=== PATIENT | female | born 1955 | race Caucasian/White ===

== ENCOUNTER 2019-04-07 23:10 | Inpatient (IN) | payer BC, MEDICAID ==
[2019-04-08 00:08] LABS: ADD MAN DIFF? NO
[2019-04-08 00:30] LABS: INR 0.95; PROTIME 12.8 Sec (11.9-14.9)
[2019-04-08 00:31] LABS: PARTIAL THROMBOPLASTIN TIME 26.3 Sec (23.0-35.0)
[2019-04-08 00:33] LABS: ALANINE AMINOTRANSFERASE 48 IU/L (13-69); ALBUMIN 3.7 g/dl (3.3-4.9); ALKALINE PHOSPHATASE 88 IU/L (42-121); ANION GAP 7 (5-13); ASPARTATE AMINO TRANSFERASE 35 IU/L (15-46); BILIRUBIN,INDIRECT 0.3 mg/dl (0-1.1); BILIRUBIN,TOTAL 0.3 mg/dl (0.2-1.3); BLOOD UREA NITROGEN 14 mg/dl (7-20); CALCIUM 9.4 mg/dl (8.4-10.2); CARBON DIOXIDE 39 mmol/L (21-31); CHLORIDE 95 mmol/L (97-110); CREATININE 0.49 mg/dl (0.44-1.00); Estimated GFR > 60 mL/min (>60); GLUCOSE 134 mg/dl (70-220); POTASSIUM 3.7 mmol/L (3.5-5.1); SODIUM 141 mmol/L (135-144); TOTAL PROTEIN 7.4 g/dl (6.1-8.1)
[2019-04-08 00:37] LABS: AADO2 Arterial 139.4 mmHg (7.0-24.0); Allen Test ACCEPTAB; Arterial Base Excess 11.5 mmol/L (-3.0-3); Arterial Blood Gas Oxygen Sat 95.6 mmHG (95.0-98.0); Arterial COHb 0.3 % (0.0-3.0); Arterial Fraction of Oxyhgb 94.9 % (93.0-99.0); Arterial HCO3 37.4 mmol/L (22.0-26.0); Arterial MetHb 0.4 % (0.0-1.5); MODE VENT - AC; Site Right Radial
[2019-04-08 00:45] LABS: WHITE BLOOD COUNT 13.7 10^3/ul (4.8-10.8)
[2019-04-08 00:45] LABS: BASOPHIL # 0.1 10^3/ul (0.0-0.1); BASOPHILS % 0.7 % (0.0-2.0); EOSINOPHILS # 0.7 10^3/ul (0.0-0.5); EOSINOPHILS % 5.3 % (0.0-7.0); HEMATOCRIT 31.7 % (37.0-47.0); HEMOGLOBIN 9.6 g/dl (12.0-16.0); LYMPHOCYTES # 1.4 10^3/ul (0.8-2.9); LYMPHOCYTES % 9.8 % (15.0-51.0); MEAN CORPUSCULAR HEMOGLOBIN 28.7 pg (29.0-33.0); MEAN CORPUSCULAR HGB CONC 30.3 g/dl (32.0-37.0); MEAN CORPUSCULAR VOLUME 94.9 fl (82.0-101.0); MEAN PLATELET VOLUME 9.5 fl (7.4-10.4); MONOCYTE # 0.8 10^3/ul (0.3-0.9); MONOCYTES % 5.8 % (0.0-11.0); NEUTROPHIL # 10.6 10^3/ul (1.6-7.5); NEUTROPHILS % 77.4 % (39.0-77.0); PLATELET COUNT 481 10^3/UL (140-415); RED BLOOD COUNT 3.34 10^6/ul (4.20-5.40); RED CELL DISTRIBUTION WIDTH 15.1 % (11.5-14.5)
[2019-04-08 00:53] LABS: TROPONIN-I 0.017 ng/ml (0.000-0.120)
[2019-04-08 01:15] LABS: B-TYPE NATRIURETIC PEPTIDE 596 PG/ML (0-125)
[2019-04-08] MEDS: OXYCODONE/ACETAMINOPHEN (5/325) TAB GTB ×2 (09:00→22:38)
[2019-04-08] MEDS ORDERED: FENTAnyl 50 MCG/ML VIAL (15:38)
[2019-04-08] MEDS: FENTAnyl 50 MCG/ML VIAL IV (16:04)
[2019-04-08] MEDS ORDERED: ACETAMINOPHEN 325 MG TAB PO (18:30)
[2019-04-08] MEDS ORDERED: ONDANSETRON 4 MG INJ IV (18:30)
[2019-04-08] MEDS ORDERED: morphine 2 MG INJ IV (19:00)
[2019-04-08] MEDS ORDERED: NACL 0.9% 3 ML SYG IV (19:00)
[2019-04-08] MEDS ORDERED: VANCOMYCIN IV PER PHARMACY XX (19:00)
[2019-04-08] MEDS: PIPER-TAZO 3.375 GM IV (PMX) 100 ML IVPB ×2 (19:31→23:55)
[2019-04-08] MEDS: VANCOMYCIN HCL 1.75 GM in SOD CHLORIDE 0.9% 500 ML IVPB (20:22)
[2019-04-09] MEDS: ZOLPIDEM 5 MG TAB PO (03:10)
[2019-04-09] MEDS: OXYCODONE/ACETAMINOPHEN (5/325) TAB GTB ×4 (04:42→22:35)
[2019-04-09] MEDS: PIPER-TAZO 3.375 GM IV (PMX) 100 ML IVPB ×3 (06:04→18:13)
[2019-04-09 06:11] LABS: ADD MAN DIFF? NO
[2019-04-09 06:16] LABS: WHITE BLOOD COUNT 12.6 10^3/ul (4.8-10.8)
[2019-04-09 06:16] LABS: BASOPHIL # 0.1 10^3/ul (0.0-0.1); BASOPHILS % 0.6 % (0.0-2.0); EOSINOPHILS # 0.8 10^3/ul (0.0-0.5); EOSINOPHILS % 6.4 % (0.0-7.0); HEMATOCRIT 31.2 % (37.0-47.0); HEMOGLOBIN 9.6 g/dl (12.0-16.0); LYMPHOCYTES # 2.3 10^3/ul (0.8-2.9); MEAN CORPUSCULAR HEMOGLOBIN 28.7 pg (29.0-33.0); MEAN CORPUSCULAR HGB CONC 30.8 g/dl (32.0-37.0); MEAN CORPUSCULAR VOLUME 93.1 fl (82.0-101.0); MEAN PLATELET VOLUME 9.2 fl (7.4-10.4); NEUTROPHIL # 8.3 10^3/ul (1.6-7.5); PLATELET COUNT 405 10^3/UL (140-415); RED BLOOD COUNT 3.35 10^6/ul (4.20-5.40); RED CELL DISTRIBUTION WIDTH 14.7 % (11.5-14.5)
[2019-04-09 06:44] LABS: ANION GAP 12 (5-13); BLOOD UREA NITROGEN 14 mg/dl (7-20); CARBON DIOXIDE 35 mmol/L (21-31); CHLORIDE 94 mmol/L (97-110); CREATININE 0.46 mg/dl (0.44-1.00); Estimated GFR > 60 mL/min (>60); GLUCOSE 82 mg/dl (70-220); MAGNESIUM 1.6 mg/dl (1.7-2.5); PHOSPHORUS 4.3 mg/dl (2.5-4.9); POTASSIUM 3.1 mmol/L (3.5-5.1); SODIUM 141 mmol/L (135-144)
[2019-04-09 06:55] LABS: HEMOGLOBIN A1C 5.3 % (0-5.9)
[2019-04-09] MEDS: DILTIAZEM 25 MG INJ IV (08:26)
[2019-04-09] MEDS: DILTIAZEM-D5W 125MG/125ML DRIP 125 ML IV (08:50)
[2019-04-09] MEDS: ENOXAPARIN 40 MG/0.4 ML SYG SC (09:55)
[2019-04-09] MEDS: VANCOMYCIN 1.5 GM/NS 250 ML 250 ML IVPB ×2 (10:23→21:30)
[2019-04-09] MEDS: POTASSIUM CHLORIDE 20 MEQ POWDER FOR ORAL SOLN GTB (10:29)
[2019-04-09] MEDS: MAGNESIUM SULFATE 2 GM/50 ML 50 ML IVPB (12:09)
[2019-04-09] MEDS: ESTRADIOL 0.1 MG/24 HR PATCH TRANSDERM (21:27)
[2019-04-09] MEDS: oxyCODONE (CR) 10 MG TAB [oxyCONTIN] PO (21:29)
[2019-04-09] MEDS: METOPROLOL 25 MG TAB GTB (21:30)
[2019-04-10] MEDS: PIPER-TAZO 3.375 GM IV (PMX) 100 ML IVPB ×4 (00:43→17:58)
[2019-04-10] MEDS: LEVALBUTEROL (HFA) 15 GM INHALER INH ×2 (04:05→21:23)
[2019-04-10] MEDS: ZOLPIDEM 5 MG TAB PO (05:30)
[2019-04-10] MEDS: METOPROLOL 25 MG TAB GTB ×2 (06:25→21:01)
[2019-04-10] MEDS: DILTIAZEM-D5W 125MG/125ML DRIP 125 ML IV (06:26)
[2019-04-10] MEDS ORDERED: METOPROLOL 25 MG TAB GTB (09:00)
[2019-04-10] MEDS: ENOXAPARIN 40 MG/0.4 ML SYG SC (09:12)
[2019-04-10 09:51] LABS: ADD MAN DIFF? NO
[2019-04-10 09:52] LABS: WHITE BLOOD COUNT 14.7 10^3/ul (4.8-10.8)
[2019-04-10 09:52] LABS: BASOPHIL # 0.1 10^3/ul (0.0-0.1); BASOPHILS % 0.6 % (0.0-2.0); EOSINOPHILS # 0.8 10^3/ul (0.0-0.5); EOSINOPHILS % 5.3 % (0.0-7.0); HEMATOCRIT 31.6 % (37.0-47.0); LYMPHOCYTES # 2.8 10^3/ul (0.8-2.9); LYMPHOCYTES % 18.8 % (15.0-51.0); MEAN CORPUSCULAR HEMOGLOBIN 28.8 pg (29.0-33.0); MEAN CORPUSCULAR HGB CONC 31.6 g/dl (32.0-37.0); MEAN CORPUSCULAR VOLUME 91.1 fl (82.0-101.0); MEAN PLATELET VOLUME 9.2 fl (7.4-10.4); MONOCYTES % 7.1 % (0.0-11.0); NEUTROPHIL # 9.9 10^3/ul (1.6-7.5); NEUTROPHILS % 67.5 % (39.0-77.0); PLATELET COUNT 425 10^3/UL (140-415); RED BLOOD COUNT 3.47 10^6/ul (4.20-5.40); RED CELL DISTRIBUTION WIDTH 14.7 % (11.5-14.5)
[2019-04-10 10:12] LABS: BLOOD UREA NITROGEN 12 mg/dl (7-20); CALCIUM 9.2 mg/dl (8.4-10.2); CHLORIDE 93 mmol/L (97-110); CREATININE 0.45 mg/dl (0.44-1.00); Estimated GFR > 60 mL/min (>60); GLUCOSE 133 mg/dl (70-220); MAGNESIUM 1.9 mg/dl (1.7-2.5); POTASSIUM 3.5 mmol/L (3.5-5.1); SODIUM 138 mmol/L (135-144)
[2019-04-10 10:19] LABS: ANION GAP 7 (5-13)
[2019-04-10 10:23] LABS: CARBON DIOXIDE 38 mmol/L (21-31)
[2019-04-10] MEDS: OXYCODONE/ACETAMINOPHEN (5/325) TAB GTB ×2 (10:34→18:53)
[2019-04-10] MEDS: oxyCODONE 5 MG TAB GTB ×3 (12:53→20:58)
[2019-04-10] MEDS ORDERED: oxyCODONE (CR) 10 MG TAB [oxyCONTIN] PO (13:00)
[2019-04-10] MEDS: VANCOMYCIN 1 GM 250 ML IVPB (15:53)
[2019-04-10] MEDS: PANTOPRAZOLE 40 MG INJ IV (15:54)
[2019-04-10] MEDS: LORAZEPAM 2 MG INJ IV (15:57)
[2019-04-10] MEDS ORDERED: FAMOTIDINE 20 MG INJ IV (21:00)
[2019-04-10] MEDS: IPRATROPIUM (HFA) 12.9 GM INHALER INH (21:22)
[2019-04-11] MEDS: PIPER-TAZO 3.375 GM IV (PMX) 100 ML IVPB ×4 (00:38→18:07)
[2019-04-11] MEDS: ZOLPIDEM 5 MG TAB PO ×2 (00:42→21:20)
[2019-04-11] MEDS: VANCOMYCIN 1 GM 250 ML IVPB ×2 (03:25→16:19)
[2019-04-11] MEDS: DILTIAZEM-D5W 125MG/125ML DRIP 125 ML IV (05:40)
[2019-04-11] MEDS: PANTOPRAZOLE 40 MG INJ IV (05:40)
[2019-04-11] MEDS: LORAZEPAM 2 MG INJ IV (06:23)
[2019-04-11] MEDS: IPRATROPIUM (HFA) 12.9 GM INHALER INH (07:59)
[2019-04-11] MEDS: LEVALBUTEROL (HFA) 15 GM INHALER INH (07:59)
[2019-04-11 08:58] LABS: ADD MAN DIFF? NO
[2019-04-11 09:02] LABS: BASOPHIL # 0.1 10^3/ul (0.0-0.1); BASOPHILS % 0.5 % (0.0-2.0); EOSINOPHILS # 0.8 10^3/ul (0.0-0.5); EOSINOPHILS % 5.1 % (0.0-7.0); HEMATOCRIT 31.2 % (37.0-47.0); HEMOGLOBIN 9.7 g/dl (12.0-16.0); LYMPHOCYTES # 2.6 10^3/ul (0.8-2.9); LYMPHOCYTES % 17.8 % (15.0-51.0); MEAN CORPUSCULAR HEMOGLOBIN 28.4 pg (29.0-33.0); MEAN CORPUSCULAR HGB CONC 31.1 g/dl (32.0-37.0); MEAN CORPUSCULAR VOLUME 91.2 fl (82.0-101.0); MONOCYTES % 6.7 % (0.0-11.0); NEUTROPHIL # 10.2 10^3/ul (1.6-7.5); NEUTROPHILS % 69.3 % (39.0-77.0); PLATELET COUNT 350 10^3/UL (140-415); RED BLOOD COUNT 3.42 10^6/ul (4.20-5.40); RED CELL DISTRIBUTION WIDTH 14.6 % (11.5-14.5)
[2019-04-11 09:02] LABS: WHITE BLOOD COUNT 14.7 10^3/ul (4.8-10.8)
[2019-04-11] MEDS: METOPROLOL 25 MG TAB GTB ×2 (09:09→20:05)
[2019-04-11] MEDS: oxyCODONE 5 MG TAB GTB ×4 (09:09→20:05)
[2019-04-11 09:19] LABS: ANION GAP 6 (5-13); BLOOD UREA NITROGEN 14 mg/dl (7-20); CALCIUM 9.1 mg/dl (8.4-10.2); CARBON DIOXIDE 36 mmol/L (21-31); CHLORIDE 96 mmol/L (97-110); CREATININE 0.44 mg/dl (0.44-1.00); Estimated GFR > 60 mL/min (>60); GLUCOSE 125 mg/dl (70-220); POTASSIUM 3.2 mmol/L (3.5-5.1); SODIUM 138 mmol/L (135-144)
[2019-04-11] MEDS: ENOXAPARIN 40 MG/0.4 ML SYG SC (09:53)
[2019-04-11 10:24] LABS: PROCALCITONIN 0.17 ng/mL (0.00-0.10)
[2019-04-11] MEDS: OXYCODONE/ACETAMINOPHEN (5/325) TAB GTB (12:11)
[2019-04-11] MEDS: POTASSIUM CHLORIDE 20 MEQ POWDER FOR ORAL SOLN GTB (20:26)
[2019-04-11] MEDS: ONDANSETRON 4 MG INJ IV (20:27)
[2019-04-12] MEDS: PIPER-TAZO 3.375 GM IV (PMX) 100 ML IVPB ×5 (00:16→22:58)
[2019-04-12] MEDS: VANCOMYCIN 1 GM 250 ML IVPB (04:22)
[2019-04-12] MEDS: DILTIAZEM-D5W 125MG/125ML DRIP 125 ML IV (04:35)
[2019-04-12 05:53] LABS: ADD MAN DIFF? NO
[2019-04-12] MEDS: OXYCODONE/ACETAMINOPHEN (5/325) TAB GTB ×3 (05:53→17:02)
[2019-04-12] MEDS: PANTOPRAZOLE 40 MG INJ IV (05:53)
[2019-04-12 06:02] LABS: ANION GAP 4 (5-13); BLOOD UREA NITROGEN 17 mg/dl (7-20); CARBON DIOXIDE 37 mmol/L (21-31); CHLORIDE 96 mmol/L (97-110); CREATININE 0.44 mg/dl (0.44-1.00); Estimated GFR > 60 mL/min (>60); GLUCOSE 146 mg/dl (70-220); POTASSIUM 3.7 mmol/L (3.5-5.1); SODIUM 137 mmol/L (135-144)
[2019-04-12 06:22] LABS: BASOPHIL # 0.1 10^3/ul (0.0-0.1); BASOPHILS % 0.6 % (0.0-2.0); EOSINOPHILS % 7.5 % (0.0-7.0); HEMATOCRIT 30.5 % (37.0-47.0); HEMOGLOBIN 9.2 g/dl (12.0-16.0); LYMPHOCYTES # 2.8 10^3/ul (0.8-2.9); LYMPHOCYTES % 22.3 % (15.0-51.0); MEAN CORPUSCULAR HEMOGLOBIN 28.3 pg (29.0-33.0); MEAN CORPUSCULAR HGB CONC 30.2 g/dl (32.0-37.0); MEAN CORPUSCULAR VOLUME 93.8 fl (82.0-101.0); MEAN PLATELET VOLUME 10.3 fl (7.4-10.4); MONOCYTE # 1.1 10^3/ul (0.3-0.9); MONOCYTES % 8.3 % (0.0-11.0); NEUTROPHIL # 7.7 10^3/ul (1.6-7.5); NEUTROPHILS % 60.8 % (39.0-77.0); PLATELET COUNT 340 10^3/UL (140-415); RED BLOOD COUNT 3.25 10^6/ul (4.20-5.40); RED CELL DISTRIBUTION WIDTH 14.9 % (11.5-14.5)
[2019-04-12 06:22] LABS: WHITE BLOOD COUNT 12.7 10^3/ul (4.8-10.8)
[2019-04-12] MEDS: IPRATROPIUM (HFA) 12.9 GM INHALER INH (08:13)
[2019-04-12] MEDS: LEVALBUTEROL (HFA) 15 GM INHALER INH (08:13)
[2019-04-12] MEDS: METOPROLOL 25 MG TAB GTB ×2 (08:40→20:38)
[2019-04-12] MEDS: oxyCODONE 5 MG TAB GTB ×4 (08:41→18:56)
[2019-04-12] MEDS: ENOXAPARIN 40 MG/0.4 ML SYG SC (09:57)
[2019-04-12] MEDS: LORAZEPAM 2 MG INJ IV (12:56)
[2019-04-12] MEDS: IOHEXOL 14.3 MG(I)/ML (ADULT) BTL PO (17:01)
[2019-04-12] MEDS: ZOLPIDEM 5 MG TAB PO (20:41)
[2019-04-12] MEDS ORDERED: VANCOMYCIN 750 MG (PMX) 250 ML IVPB (21:00)
[2019-04-12] MEDS: ESTRADIOL 0.1 MG/24 HR PATCH TRANSDERM (22:58)
[2019-04-13] MEDS: ONDANSETRON 4 MG INJ IV ×3 (02:33→09:27)
[2019-04-13] MEDS: OXYCODONE/ACETAMINOPHEN (5/325) TAB GTB ×2 (03:41→21:33)
[2019-04-13] MEDS: PIPER-TAZO 3.375 GM IV (PMX) 100 ML IVPB (05:50)
[2019-04-13] MEDS: LANSOPRAZOLE 30 MG CAP GTB (05:50)
[2019-04-13] MEDS: LEVALBUTEROL (HFA) 15 GM INHALER INH ×3 (09:22→18:30)
[2019-04-13] MEDS: IPRATROPIUM (HFA) 12.9 GM INHALER INH ×3 (09:22→18:30)
[2019-04-13] MEDS: METOPROLOL 25 MG TAB GTB (09:27)
[2019-04-13] MEDS: ENOXAPARIN 40 MG/0.4 ML SYG SC (09:28)
[2019-04-13] MEDS: oxyCODONE 5 MG TAB GTB (09:39)
[2019-04-13] MEDS: LACTULOSE 30ML CUP PO ×3 (10:22→21:21)
[2019-04-13] MEDS: LORAZEPAM 2 MG INJ IV (15:35)
[2019-04-13] MEDS: ZOLPIDEM 5 MG TAB PO (23:46)
[2019-04-14] MEDS: OXYCODONE/ACETAMINOPHEN (5/325) TAB GTB (04:49)
[2019-04-14] MEDS: LACTULOSE 30ML CUP PO (05:04)
[2019-04-14] MEDS: LANSOPRAZOLE 30 MG CAP GTB (05:04)
[2019-04-14] MEDS: ENOXAPARIN 40 MG/0.4 ML SYG SC (08:39)
[2019-04-14] MEDS: LORAZEPAM 2 MG INJ IV ×2 (08:43→15:56)
[2019-04-14] MEDS: HYDROmorphONE 0.5 MG/0.5 ML SYG IV ×3 (11:42→22:13)
[2019-04-14] MEDS: IPRATROPIUM (HFA) 12.9 GM INHALER INH (15:32)
[2019-04-14] MEDS: LEVALBUTEROL (HFA) 15 GM INHALER INH (15:32)
[2019-04-14] MEDS: ZOLPIDEM 5 MG TAB PO (21:16)
[2019-04-15] MEDS: LORAZEPAM 2 MG INJ IV ×3 (01:14→20:27)
[2019-04-15] MEDS: GUAIFENESIN/DM 5ML CUP PO ×3 (02:04→19:10)
[2019-04-15] MEDS: HYDROmorphONE 0.5 MG/0.5 ML SYG IV ×3 (04:45→16:15)
[2019-04-15] MEDS: LANSOPRAZOLE 30 MG CAP GTB (05:54)
[2019-04-15 06:55] LABS: ADD MAN DIFF? NO
[2019-04-15 07:01] LABS: BASOPHIL # 0.1 10^3/ul (0.0-0.1); BASOPHILS % 0.6 % (0.0-2.0); EOSINOPHILS # 0.5 10^3/ul (0.0-0.5); EOSINOPHILS % 3.9 % (0.0-7.0); HEMATOCRIT 28.8 % (37.0-47.0); HEMOGLOBIN 8.8 g/dl (12.0-16.0); LYMPHOCYTES # 2.5 10^3/ul (0.8-2.9); LYMPHOCYTES % 19.5 % (15.0-51.0); MEAN CORPUSCULAR HEMOGLOBIN 28.2 pg (29.0-33.0); MEAN CORPUSCULAR HGB CONC 30.6 g/dl (32.0-37.0); MEAN CORPUSCULAR VOLUME 92.3 fl (82.0-101.0); MEAN PLATELET VOLUME 10.4 fl (7.4-10.4); NEUTROPHIL # 8.6 10^3/ul (1.6-7.5); NEUTROPHILS % 67.5 % (39.0-77.0); PLATELET COUNT 245 10^3/UL (140-415); RED BLOOD COUNT 3.12 10^6/ul (4.20-5.40); RED CELL DISTRIBUTION WIDTH 14.8 % (11.5-14.5)
[2019-04-15 07:01] LABS: WHITE BLOOD COUNT 12.8 10^3/ul (4.8-10.8)
[2019-04-15 07:19] LABS: ANION GAP 4 (5-13); BLOOD UREA NITROGEN 14 mg/dl (7-20); CALCIUM 9.3 mg/dl (8.4-10.2); CARBON DIOXIDE 37 mmol/L (21-31); CHLORIDE 95 mmol/L (97-110); CREATININE 0.41 mg/dl (0.44-1.00); Estimated GFR > 60 mL/min (>60); GLUCOSE 144 mg/dl (70-220); POTASSIUM 3.2 mmol/L (3.5-5.1); SODIUM 136 mmol/L (135-144)
[2019-04-15] MEDS: LACTULOSE 30ML CUP PO (09:00)
[2019-04-15] MEDS: ENOXAPARIN 40 MG/0.4 ML SYG SC (09:35)
[2019-04-15 11:45] LABS: ADD UMIC YES; UR ASCORBIC ACID NEGATIVE (NEGATIVE); UR BACTERIA FEW /HPF (NONE SEEN); UR BILIRUBIN (Dip) NEGATIVE (NEGATIVE); UR BLOOD (Dip) NEGATIVE (NEGATIVE); UR CLARITY SLIGHTLY CLOUDY (CLEAR); UR COLOR YELLOW (YELLOW); UR GLUCOSE (Dip) NEGATIVE (NEGATIVE); UR KETONES (Dip) NEGATIVE (NEGATIVE); UR LEUKOCYTE ESTERASE (Dip) 3+ Leu/ul (NEGATIVE); UR NITRITE (Dip) NEGATIVE (NEGATIVE); UR RBC 2 /HPF (0-5); UR SPECIFIC GRAVITY (Dip) 1.011 (1.003-1.030); UR SQUAMOUS EPITHELIAL CELL FEW /HPF (FEW); UR TOTAL PROTEIN (Dip) NEGATIVE (NEGATIVE); UR UROBILINOGEN (Dip) NEGATIVE (NEGATIVE); UR WBC 28 /HPF (0-5)
[2019-04-15] MEDS: OXYCODONE/ACETAMINOPHEN (5/325) TAB GTB ×2 (12:26→17:46)
[2019-04-16] MEDS: GUAIFENESIN/DM 5ML CUP PO ×4 (01:47→17:05)
[2019-04-16] MEDS: LORAZEPAM 2 MG INJ IV ×2 (04:51→14:02)
[2019-04-16] MEDS: DOCUSATE SODIUM 10 MG/ML (10ML CUP) GTB ×2 (04:52→17:06)
[2019-04-16] MEDS: LANSOPRAZOLE 30 MG CAP GTB (04:52)
[2019-04-16] MEDS: HYDROmorphONE 0.5 MG/0.5 ML SYG IV ×4 (08:32→23:49)
[2019-04-16] MEDS: ENOXAPARIN 40 MG/0.4 ML SYG SC (08:42)
[2019-04-16] MEDS: OXYCODONE/ACETAMINOPHEN (5/325) TAB GTB ×2 (09:44→18:54)
[2019-04-16] MEDS: ONDANSETRON 4 MG INJ IV (12:35)
[2019-04-16] MEDS ORDERED: BISACODYL 10 MG SUPP PR (18:00)
[2019-04-16] MEDS: IBUPROFEN LIQUID (PED) 20 MG/ML CUP GTB (18:54)
[2019-04-16] MEDS: ZOLPIDEM 5 MG TAB PO (21:07)
[2019-04-16] MEDS: ESTRADIOL 0.1 MG/24 HR PATCH TRANSDERM (21:17)
[2019-04-17] MEDS: LORAZEPAM 2 MG INJ IV ×3 (00:39→18:02)
[2019-04-17] MEDS: LEVALBUTEROL (HFA) 15 GM INHALER INH ×2 (00:51→13:57)
[2019-04-17] MEDS: IPRATROPIUM (HFA) 12.9 GM INHALER INH ×2 (00:51→13:58)
[2019-04-17] MEDS: IBUPROFEN LIQUID (PED) 20 MG/ML CUP GTB (06:04)
[2019-04-17] MEDS: LANSOPRAZOLE 30 MG CAP GTB (06:04)
[2019-04-17 06:41] LABS: ADD MAN DIFF? NO
[2019-04-17 06:47] LABS: WHITE BLOOD COUNT 13.8 10^3/ul (4.8-10.8)
[2019-04-17 06:47] LABS: BASOPHIL # 0.1 10^3/ul (0.0-0.1); BASOPHILS % 0.7 % (0.0-2.0); EOSINOPHILS # 0.8 10^3/ul (0.0-0.5); EOSINOPHILS % 5.7 % (0.0-7.0); HEMATOCRIT 28.7 % (37.0-47.0); HEMOGLOBIN 9.2 g/dl (12.0-16.0); LYMPHOCYTES # 2.7 10^3/ul (0.8-2.9); LYMPHOCYTES % 19.8 % (15.0-51.0); MEAN CORPUSCULAR HGB CONC 32.1 g/dl (32.0-37.0); MEAN CORPUSCULAR VOLUME 90.5 fl (82.0-101.0); MEAN PLATELET VOLUME 9.8 fl (7.4-10.4); MONOCYTE # 1.2 10^3/ul (0.3-0.9); MONOCYTES % 8.6 % (0.0-11.0); NEUTROPHIL # 8.9 10^3/ul (1.6-7.5); NEUTROPHILS % 64.3 % (39.0-77.0); PLATELET COUNT 270 10^3/UL (140-415); RED BLOOD COUNT 3.17 10^6/ul (4.20-5.40); RED CELL DISTRIBUTION WIDTH 14.5 % (11.5-14.5)
[2019-04-17 07:04] LABS: PHOSPHORUS 5.2 mg/dl (2.5-4.9)
[2019-04-17 07:04] LABS: MAGNESIUM 1.7 mg/dl (1.7-2.5)
[2019-04-17 07:15] LABS: ALANINE AMINOTRANSFERASE 22 IU/L (13-69); ALBUMIN 3.5 g/dl (3.3-4.9); ALBUMIN/GLOBULIN RATIO 0.97; ALKALINE PHOSPHATASE 94 IU/L (42-121); ANION GAP 7 (5-13); ASPARTATE AMINO TRANSFERASE 25 IU/L (15-46); BILIRUBIN,INDIRECT 0.3 mg/dl (0-1.1); BILIRUBIN,TOTAL 0.3 mg/dl (0.2-1.3); BLOOD UREA NITROGEN 15 mg/dl (7-20); CALCIUM 9.5 mg/dl (8.4-10.2); CARBON DIOXIDE 38 mmol/L (21-31); CHLORIDE 95 mmol/L (97-110); CREATININE 0.43 mg/dl (0.44-1.00); Estimated GFR > 60 mL/min (>60); GLUCOSE 136 mg/dl (70-220); POTASSIUM 3.8 mmol/L (3.5-5.1); SODIUM 140 mmol/L (135-144); TOTAL PROTEIN 7.1 g/dl (6.1-8.1)
[2019-04-17] MEDS: IPRATROPIUM (NEB) 0.5 MG/2.5 ML AMP HHN ×3 (08:45→16:53)
[2019-04-17] MEDS: DOCUSATE SODIUM 10 MG/ML (10ML CUP) GTB (09:00)
[2019-04-17] MEDS: POTASSIUM CHLORIDE 20 MEQ POWDER FOR ORAL SOLN GTB (09:00)
[2019-04-17] MEDS: ENOXAPARIN 40 MG/0.4 ML SYG SC (09:26)
[2019-04-17] MEDS: HYDROmorphONE 0.5 MG/0.5 ML SYG IV (12:17)
[2019-04-17] MEDS: ONDANSETRON 4 MG INJ IV (12:39)
[2019-04-17] MEDS: HYDROmorphONE 1 MG/ML SYG IV (14:33)
[2019-04-17] MEDS: METOCLOPRAMIDE 10 MG INJ IV (14:47)
[2019-04-17] MEDS: DEXTROSE 5%-0.45% NACL 1,000 ML IV (20:38)
[2019-04-18] MEDS: HYDROmorphONE 1 MG/ML SYG IV ×7 (00:10→23:50)
[2019-04-18] MEDS: IPRATROPIUM (NEB) 0.5 MG/2.5 ML AMP HHN (00:41)
[2019-04-18] MEDS: IPRATROPIUM (HFA) 12.9 GM INHALER INH ×3 (00:55→16:50)
[2019-04-18] MEDS: LORAZEPAM 2 MG INJ IV ×3 (02:24→19:25)
[2019-04-18] MEDS: LANSOPRAZOLE 30 MG CAP GTB (05:31)
[2019-04-18] MEDS: ONDANSETRON 4 MG INJ IV ×3 (06:41→20:36)
[2019-04-18] MEDS: LEVALBUTEROL (HFA) 15 GM INHALER INH (08:50)
[2019-04-18] MEDS: POTASSIUM CHLORIDE 20 MEQ POWDER FOR ORAL SOLN GTB (09:00)
[2019-04-18] MEDS: DOCUSATE SODIUM 10 MG/ML (10ML CUP) GTB (09:00)
[2019-04-18] MEDS: CIPROFLOXACIN 400MG/D5W 200 ML IVPB ×2 (09:52→20:36)
[2019-04-18] MEDS: DEXTROSE 5%-0.45% NACL 1,000 ML IV (09:52)
[2019-04-18] MEDS: ENOXAPARIN 40 MG/0.4 ML SYG SC (10:02)
[2019-04-19] MEDS: IPRATROPIUM (HFA) 12.9 GM INHALER INH ×4 (00:05→19:36)
[2019-04-19] MEDS: DEXTROSE 5%-0.45% NACL 1,000 ML IV ×3 (00:41→17:44)
[2019-04-19] MEDS: LANSOPRAZOLE 30 MG CAP GTB (06:00)
[2019-04-19] MEDS: HYDROmorphONE 1 MG/ML SYG IV ×5 (06:34→20:56)
[2019-04-19 06:40] LABS: ADD MAN DIFF? NO
[2019-04-19 06:49] LABS: WHITE BLOOD COUNT 13.7 10^3/ul (4.8-10.8)
[2019-04-19 06:49] LABS: BASOPHIL # 0.1 10^3/ul (0.0-0.1); BASOPHILS % 0.7 % (0.0-2.0); EOSINOPHILS # 0.7 10^3/ul (0.0-0.5); EOSINOPHILS % 5.4 % (0.0-7.0); HEMATOCRIT 29.1 % (37.0-47.0); HEMOGLOBIN 9.1 g/dl (12.0-16.0); LYMPHOCYTES # 2.7 10^3/ul (0.8-2.9); MEAN CORPUSCULAR HEMOGLOBIN 28.1 pg (29.0-33.0); MEAN CORPUSCULAR HGB CONC 31.3 g/dl (32.0-37.0); MEAN CORPUSCULAR VOLUME 89.8 fl (82.0-101.0); MEAN PLATELET VOLUME 10.1 fl (7.4-10.4); MONOCYTE # 1.2 10^3/ul (0.3-0.9); MONOCYTES % 8.6 % (0.0-11.0); NEUTROPHIL # 8.8 10^3/ul (1.6-7.5); NEUTROPHILS % 64.3 % (39.0-77.0); PLATELET COUNT 346 10^3/UL (140-415); RED BLOOD COUNT 3.24 10^6/ul (4.20-5.40); RED CELL DISTRIBUTION WIDTH 14.2 % (11.5-14.5)
[2019-04-19 07:20] LABS: ALANINE AMINOTRANSFERASE 23 IU/L (13-69); ALBUMIN 3.5 g/dl (3.3-4.9); ALKALINE PHOSPHATASE 78 IU/L (42-121); ANION GAP 7 (5-13); ASPARTATE AMINO TRANSFERASE 27 IU/L (15-46); BILIRUBIN,INDIRECT 0.4 mg/dl (0-1.1); BILIRUBIN,TOTAL 0.4 mg/dl (0.2-1.3); BLOOD UREA NITROGEN 7 mg/dl (7-20); CALCIUM 9.6 mg/dl (8.4-10.2); CARBON DIOXIDE 32 mmol/L (21-31); CHLORIDE 99 mmol/L (97-110); CREATININE 0.45 mg/dl (0.44-1.00); Estimated GFR > 60 mL/min (>60); GLUCOSE 132 mg/dl (70-220); POTASSIUM 3.4 mmol/L (3.5-5.1); SODIUM 138 mmol/L (135-144)
[2019-04-19 07:54] LABS: PHOSPHORUS 4.9 mg/dl (2.5-4.9)
[2019-04-19] MEDS: CIPROFLOXACIN 400MG/D5W 200 ML IVPB ×2 (08:08→20:56)
[2019-04-19] MEDS: ONDANSETRON 4 MG INJ IV (08:08)
[2019-04-19] MEDS: DOCUSATE SODIUM 10 MG/ML (10ML CUP) GTB (09:00)
[2019-04-19] MEDS: METOCLOPRAMIDE 10 MG INJ IV (11:22)
[2019-04-19] MEDS: POTASSIUM CHLORIDE 100 ML IVPB (12:54)
[2019-04-19] MEDS: LORAZEPAM 2 MG INJ IV ×2 (16:20→21:59)
[2019-04-19] MEDS: ENOXAPARIN 40 MG/0.4 ML SYG SC (16:31)
[2019-04-19] MEDS: LEVALBUTEROL (HFA) 15 GM INHALER INH ×2 (18:12→19:36)
[2019-04-19] MEDS: ESTRADIOL 0.1 MG/24 HR PATCH TRANSDERM (20:00)
[2019-04-20] MEDS: IPRATROPIUM (HFA) 12.9 GM INHALER INH ×4 (01:01→23:28)
[2019-04-20] MEDS: LEVALBUTEROL (HFA) 15 GM INHALER INH (01:01)
[2019-04-20] MEDS: DEXTROSE 5%-0.45% NACL 1,000 ML IV ×3 (02:02→13:36)
[2019-04-20] MEDS: LANSOPRAZOLE 30 MG CAP GTB (05:26)
[2019-04-20 06:32] LABS: ADD MAN DIFF? NO
[2019-04-20 06:45] LABS: WHITE BLOOD COUNT 14.1 10^3/ul (4.8-10.8)
[2019-04-20 06:45] LABS: BASOPHIL # 0.1 10^3/ul (0.0-0.1); BASOPHILS % 0.6 % (0.0-2.0); EOSINOPHILS # 0.7 10^3/ul (0.0-0.5); EOSINOPHILS % 4.8 % (0.0-7.0); HEMATOCRIT 29.6 % (37.0-47.0); HEMOGLOBIN 9.2 g/dl (12.0-16.0); LYMPHOCYTES % 21.3 % (15.0-51.0); MEAN CORPUSCULAR HGB CONC 31.1 g/dl (32.0-37.0); MEAN PLATELET VOLUME 10.5 fl (7.4-10.4); MONOCYTE # 1.2 10^3/ul (0.3-0.9); MONOCYTES % 8.7 % (0.0-11.0); NEUTROPHIL # 8.9 10^3/ul (1.6-7.5); NEUTROPHILS % 63.5 % (39.0-77.0); PLATELET COUNT 412 10^3/UL (140-415); RED BLOOD COUNT 3.29 10^6/ul (4.20-5.40); RED CELL DISTRIBUTION WIDTH 14.3 % (11.5-14.5)
[2019-04-20 07:05] LABS: INR 1.09; PARTIAL THROMBOPLASTIN TIME 29.1 Sec (23.0-35.0); PROTIME 14.2 Sec (11.9-14.9); PT RATIO 1.1
[2019-04-20 07:06] LABS: MAGNESIUM 1.4 mg/dl (1.7-2.5)
[2019-04-20 07:07] LABS: ANION GAP 8 (5-13); BLOOD UREA NITROGEN 4 mg/dl (7-20); CALCIUM 9.8 mg/dl (8.4-10.2); CARBON DIOXIDE 31 mmol/L (21-31); CHLORIDE 100 mmol/L (97-110); CREATININE 0.41 mg/dl (0.44-1.00); Estimated GFR > 60 mL/min (>60); GLUCOSE 130 mg/dl (70-220); POTASSIUM 3.6 mmol/L (3.5-5.1); SODIUM 139 mmol/L (135-144)
[2019-04-20] MEDS: CIPROFLOXACIN 400MG/D5W 200 ML IVPB ×2 (08:33→20:49)
[2019-04-20] MEDS: ENOXAPARIN 40 MG/0.4 ML SYG SC (08:53)
[2019-04-20] MEDS: DOCUSATE SODIUM 10 MG/ML (10ML CUP) GTB (09:00)
[2019-04-20] MEDS: HYDROmorphONE 1 MG/ML SYG IV ×4 (09:18→21:16)
[2019-04-20] MEDS: LORAZEPAM 2 MG INJ IV ×2 (11:50→19:30)
[2019-04-20] MEDS: ONDANSETRON 4 MG INJ IV ×2 (15:01→20:45)
[2019-04-21] MEDS: DEXTROSE 5%-0.45% NACL 1,000 ML IV ×2 (05:04→22:20)
[2019-04-21] MEDS: LANSOPRAZOLE 30 MG CAP GTB (05:12)
[2019-04-21] MEDS: LEVALBUTEROL (HFA) 15 GM INHALER INH ×4 (06:42→23:14)
[2019-04-21] MEDS: LORAZEPAM 2 MG INJ IV ×3 (06:55→20:19)
[2019-04-21] MEDS: IPRATROPIUM (HFA) 12.9 GM INHALER INH ×3 (07:49→23:14)
[2019-04-21 08:21] LABS: ADD MAN DIFF? NO
[2019-04-21 08:23] LABS: BASOPHIL # 0.1 10^3/ul (0.0-0.1); BASOPHILS % 0.9 % (0.0-2.0); EOSINOPHILS # 0.6 10^3/ul (0.0-0.5); EOSINOPHILS % 4.9 % (0.0-7.0); HEMATOCRIT 27.4 % (37.0-47.0); HEMOGLOBIN 8.7 g/dl (12.0-16.0); LYMPHOCYTES # 2.9 10^3/ul (0.8-2.9); LYMPHOCYTES % 24.7 % (15.0-51.0); MEAN CORPUSCULAR HEMOGLOBIN 28.2 pg (29.0-33.0); MEAN CORPUSCULAR HGB CONC 31.8 g/dl (32.0-37.0); MEAN PLATELET VOLUME 10.1 fl (7.4-10.4); MONOCYTE # 1.1 10^3/ul (0.3-0.9); MONOCYTES % 9.3 % (0.0-11.0); NEUTROPHIL # 6.8 10^3/ul (1.6-7.5); NEUTROPHILS % 59.2 % (39.0-77.0); PLATELET COUNT 390 10^3/UL (140-415); RED BLOOD COUNT 3.08 10^6/ul (4.20-5.40); RED CELL DISTRIBUTION WIDTH 14.2 % (11.5-14.5)
[2019-04-21 08:23] LABS: WHITE BLOOD COUNT 11.6 10^3/ul (4.8-10.8)
[2019-04-21] MEDS: CIPROFLOXACIN 400MG/D5W 200 ML IVPB ×2 (08:40→20:30)
[2019-04-21 08:52] LABS: ANION GAP 9 (5-13); BLOOD UREA NITROGEN 3 mg/dl (7-20); CALCIUM 9.6 mg/dl (8.4-10.2); CARBON DIOXIDE 29 mmol/L (21-31); CHLORIDE 102 mmol/L (97-110); CREATININE 0.47 mg/dl (0.44-1.00); Estimated GFR > 60 mL/min (>60); GLUCOSE 116 mg/dl (70-220); MAGNESIUM 1.4 mg/dl (1.7-2.5); SODIUM 140 mmol/L (135-144)
[2019-04-21 08:52] LABS: PHOSPHORUS 4.7 mg/dl (2.5-4.9)
[2019-04-21] MEDS: ENOXAPARIN 40 MG/0.4 ML SYG SC (08:58)
[2019-04-21] MEDS: DOCUSATE SODIUM 10 MG/ML (10ML CUP) GTB (09:00)
[2019-04-21] MEDS: HYDROmorphONE 1 MG/ML SYG IV ×4 (10:55→22:12)
[2019-04-21] MEDS: MAGNESIUM SULFATE 3 GM in DEXTROSE 5% 100 ML IVPB (15:39)
[2019-04-22] MEDS: LANSOPRAZOLE 30 MG CAP GTB (05:42)
[2019-04-22] MEDS: HYDROmorphONE 1 MG/ML SYG IV ×2 (06:13→09:35)
[2019-04-22 06:50] LABS: ADD MAN DIFF? NO
[2019-04-22 06:55] LABS: BASOPHIL # 0.1 10^3/ul (0.0-0.1); BASOPHILS % 0.7 % (0.0-2.0); EOSINOPHILS # 0.5 10^3/ul (0.0-0.5); EOSINOPHILS % 3.8 % (0.0-7.0); HEMATOCRIT 30.6 % (37.0-47.0); HEMOGLOBIN 9.7 g/dl (12.0-16.0); LYMPHOCYTES % 21.6 % (15.0-51.0); MEAN CORPUSCULAR HEMOGLOBIN 28.2 pg (29.0-33.0); MEAN CORPUSCULAR HGB CONC 31.7 g/dl (32.0-37.0); MEAN PLATELET VOLUME 9.7 fl (7.4-10.4); MONOCYTE # 1.2 10^3/ul (0.3-0.9); MONOCYTES % 8.4 % (0.0-11.0); NEUTROPHIL # 8.9 10^3/ul (1.6-7.5); NEUTROPHILS % 64.7 % (39.0-77.0); PLATELET COUNT 443 10^3/UL (140-415); RED BLOOD COUNT 3.44 10^6/ul (4.20-5.40); RED CELL DISTRIBUTION WIDTH 14.2 % (11.5-14.5)
[2019-04-22 06:55] LABS: WHITE BLOOD COUNT 13.7 10^3/ul (4.8-10.8)
[2019-04-22 07:18] LABS: ANION GAP 6 (5-13); BLOOD UREA NITROGEN 4 mg/dl (7-20); CALCIUM 9.4 mg/dl (8.4-10.2); CARBON DIOXIDE 31 mmol/L (21-31); CHLORIDE 100 mmol/L (97-110); CREATININE 0.45 mg/dl (0.44-1.00); Estimated GFR > 60 mL/min (>60); GLUCOSE 131 mg/dl (70-220); MAGNESIUM 1.9 mg/dl (1.7-2.5); PHOSPHORUS 4.5 mg/dl (2.5-4.9); SODIUM 137 mmol/L (135-144)
[2019-04-22 07:20] LABS: POTASSIUM 2.9 mmol/L (3.5-5.1)
[2019-04-22] MEDS: IOHEXOL 300MG/ML 30 ML BTL (07:39)
[2019-04-22] MEDS: FENTAnyl 50 MCG/ML VIAL (07:39)
[2019-04-22] MEDS: MINERAL OIL 133 ML ENEMA PR (07:40)
[2019-04-22] MEDS: LIDOCAINE 2% (SDV) 5 ML INJ (07:40)
[2019-04-22] MEDS: MIDAZOLAM 1 MG/ML 2 ML INJ (07:40)
[2019-04-22] MEDS: IPRATROPIUM (HFA) 12.9 GM INHALER INH ×3 (07:57→23:20)
[2019-04-22] MEDS: DOCUSATE SODIUM 10 MG/ML (10ML CUP) GTB (09:00)
[2019-04-22] MEDS: POTASSIUM CHLORIDE 20 MEQ POWDER FOR ORAL SOLN GTB ×2 (09:33→15:05)
[2019-04-22] MEDS: BALSAM PERU/CASTOR OIL 60 GM TUBE TOP (09:34)
[2019-04-22] MEDS: CIPROFLOXACIN 400MG/D5W 200 ML IVPB ×2 (09:38→20:58)
[2019-04-22] MEDS: ENOXAPARIN 40 MG/0.4 ML SYG SC (09:57)
[2019-04-22] MEDS ORDERED: LACTULOSE 30ML CUP PO (12:00)
[2019-04-22] MEDS: IBUPROFEN LIQUID (PED) 20 MG/ML CUP GTB (12:12)
[2019-04-22] MEDS: GUAIFENESIN/DM 5ML CUP PO ×2 (12:12→20:58)
[2019-04-22] MEDS: LACTULOSE 30ML CUP JT ×2 (12:13→20:59)
[2019-04-22] MEDS: LORAZEPAM 2 MG INJ IV ×2 (12:47→18:51)
[2019-04-22] MEDS: DEXTROSE 5%-0.45% NACL 1,000 ML IV (15:30)
[2019-04-22] MEDS: OXYCODONE/ACETAMINOPHEN (10/325) TAB PO (18:03)
[2019-04-22] MEDS: AL HYDROX/MG HYDROX/SIMETH 30 ML CUP PO (21:50)
[2019-04-23] MEDS: OXYCODONE/ACETAMINOPHEN (10/325) TAB PO ×2 (04:12→13:02)
[2019-04-23] MEDS: GUAIFENESIN/DM 5ML CUP PO (04:31)
[2019-04-23] MEDS: LANSOPRAZOLE 30 MG CAP GTB ×2 (06:00→18:00)
[2019-04-23] MEDS: AL HYDROX/MG HYDROX/SIMETH 30 ML CUP PO ×2 (06:54→16:47)
[2019-04-23 07:25] LABS: ADD MAN DIFF? NO
[2019-04-23 07:32] LABS: BASOPHIL # 0.1 10^3/ul (0.0-0.1); BASOPHILS % 0.6 % (0.0-2.0); EOSINOPHILS # 0.7 10^3/ul (0.0-0.5); EOSINOPHILS % 4.2 % (0.0-7.0); HEMATOCRIT 29.6 % (37.0-47.0); LYMPHOCYTES # 2.9 10^3/ul (0.8-2.9); LYMPHOCYTES % 18.1 % (15.0-51.0); MEAN CORPUSCULAR HEMOGLOBIN 27.7 pg (29.0-33.0); MEAN CORPUSCULAR HGB CONC 30.4 g/dl (32.0-37.0); MEAN CORPUSCULAR VOLUME 91.1 fl (82.0-101.0); MEAN PLATELET VOLUME 10.2 fl (7.4-10.4); MONOCYTE # 1.2 10^3/ul (0.3-0.9); MONOCYTES % 7.5 % (0.0-11.0); NEUTROPHIL # 11.2 10^3/ul (1.6-7.5); NEUTROPHILS % 68.7 % (39.0-77.0); PLATELET COUNT 454 10^3/UL (140-415); RED BLOOD COUNT 3.25 10^6/ul (4.20-5.40); RED CELL DISTRIBUTION WIDTH 14.2 % (11.5-14.5)
[2019-04-23 07:32] LABS: WHITE BLOOD COUNT 16.3 10^3/ul (4.8-10.8)
[2019-04-23] MEDS: IPRATROPIUM (HFA) 12.9 GM INHALER INH ×4 (07:32→23:24)
[2019-04-23 08:03] LABS: PHOSPHORUS 4.1 mg/dl (2.5-4.9)
[2019-04-23 08:03] LABS: ANION GAP 6 (5-13); BLOOD UREA NITROGEN 5 mg/dl (7-20); CALCIUM 9.2 mg/dl (8.4-10.2); CARBON DIOXIDE 31 mmol/L (21-31); CHLORIDE 100 mmol/L (97-110); CREATININE 0.45 mg/dl (0.44-1.00); Estimated GFR > 60 mL/min (>60); GLUCOSE 129 mg/dl (70-220); MAGNESIUM 1.7 mg/dl (1.7-2.5); POTASSIUM 3.7 mmol/L (3.5-5.1); SODIUM 137 mmol/L (135-144)
[2019-04-23] MEDS: LACTULOSE 30ML CUP JT (09:00)
[2019-04-23] MEDS: DOCUSATE SODIUM 10 MG/ML (10ML CUP) GTB (09:00)
[2019-04-23] MEDS: CIPROFLOXACIN 400MG/D5W 200 ML IVPB ×2 (09:13→20:08)
[2019-04-23] MEDS: DEXTROSE 5%-0.45% NACL 1,000 ML IV (09:13)
[2019-04-23] MEDS: BALSAM PERU/CASTOR OIL 60 GM TUBE TOP (09:13)
[2019-04-23] MEDS: ENOXAPARIN 40 MG/0.4 ML SYG SC (09:33)
[2019-04-23] MEDS: LORAZEPAM 2 MG INJ IV ×3 (09:55→17:14)
[2019-04-23] MEDS: LEVALBUTEROL (HFA) 15 GM INHALER INH ×2 (13:20→23:24)
[2019-04-23] MEDS: ONDANSETRON 4 MG INJ IV ×2 (13:54→20:14)
[2019-04-23] MEDS ORDERED: LACTULOSE 30ML CUP JT (15:00)
[2019-04-23] MEDS: ESTRADIOL 0.1 MG/24 HR PATCH TRANSDERM (20:07)
[2019-04-23] MEDS: HYDROmorphONE 1 MG/ML SYG IV (20:08)
[2019-04-23] MEDS: METOCLOPRAMIDE 10 MG INJ IV (20:13)
[2019-04-24] MEDS: OXYCODONE/ACETAMINOPHEN (10/325) TAB PO ×3 (03:28→18:47)
[2019-04-24] MEDS: AL HYDROX/MG HYDROX/SIMETH 30 ML CUP PO ×2 (03:28→19:43)
[2019-04-24] MEDS: LANSOPRAZOLE 30 MG CAP GTB ×2 (06:00→17:49)
[2019-04-24] MEDS: METOCLOPRAMIDE 10 MG INJ IV (06:21)
[2019-04-24] MEDS: ONDANSETRON 4 MG INJ IV (06:21)
[2019-04-24 06:40] LABS: ADD MAN DIFF? NO
[2019-04-24 06:47] LABS: WHITE BLOOD COUNT 14.1 10^3/ul (4.8-10.8)
[2019-04-24 06:47] LABS: BASOPHIL # 0.1 10^3/ul (0.0-0.1); BASOPHILS % 0.6 % (0.0-2.0); EOSINOPHILS # 0.6 10^3/ul (0.0-0.5); EOSINOPHILS % 4.4 % (0.0-7.0); HEMATOCRIT 28.7 % (37.0-47.0); HEMOGLOBIN 8.7 g/dl (12.0-16.0); LYMPHOCYTES # 3.3 10^3/ul (0.8-2.9); LYMPHOCYTES % 23.3 % (15.0-51.0); MEAN CORPUSCULAR HEMOGLOBIN 27.5 pg (29.0-33.0); MEAN CORPUSCULAR HGB CONC 30.3 g/dl (32.0-37.0); MEAN CORPUSCULAR VOLUME 90.8 fl (82.0-101.0); MEAN PLATELET VOLUME 9.9 fl (7.4-10.4); MONOCYTE # 1.1 10^3/ul (0.3-0.9); MONOCYTES % 8.1 % (0.0-11.0); NEUTROPHIL # 8.8 10^3/ul (1.6-7.5); NEUTROPHILS % 62.8 % (39.0-77.0); PLATELET COUNT 469 10^3/UL (140-415); RED BLOOD COUNT 3.16 10^6/ul (4.20-5.40); RED CELL DISTRIBUTION WIDTH 14.1 % (11.5-14.5)
[2019-04-24 07:24] LABS: ANION GAP 7 (5-13); BLOOD UREA NITROGEN 9 mg/dl (7-20); CALCIUM 9.3 mg/dl (8.4-10.2); CARBON DIOXIDE 32 mmol/L (21-31); CHLORIDE 99 mmol/L (97-110); CREATININE 0.45 mg/dl (0.44-1.00); Estimated GFR > 60 mL/min (>60); GLUCOSE 122 mg/dl (70-220); POTASSIUM 3.5 mmol/L (3.5-5.1); SODIUM 138 mmol/L (135-144)
[2019-04-24] MEDS: CALCIUM CARBONATE 500 MG CHEW TAB PO ×2 (08:07→17:48)
[2019-04-24] MEDS: DOCUSATE SODIUM 10 MG/ML (10ML CUP) GTB (08:07)
[2019-04-24] MEDS: ENOXAPARIN 40 MG/0.4 ML SYG SC (08:22)
[2019-04-24] MEDS: IPRATROPIUM (HFA) 12.9 GM INHALER INH ×3 (08:23→23:31)
[2019-04-24] MEDS: LORAZEPAM 2 MG INJ IV ×2 (11:04→19:43)
[2019-04-24] MEDS: BALSAM PERU/CASTOR OIL 60 GM TUBE TOP (11:04)
[2019-04-24] MEDS: CIPROFLOXACIN 400MG/D5W 200 ML IVPB ×2 (11:12→20:37)
[2019-04-24] MEDS: HYDROmorphONE 1 MG/ML SYG IV ×2 (16:17→20:39)
[2019-04-24] MEDS: LEVALBUTEROL (HFA) 15 GM INHALER INH (23:30)
[2019-04-25] MEDS: AL HYDROX/MG HYDROX/SIMETH 30 ML CUP PO ×2 (03:24→12:36)
[2019-04-25] MEDS: OXYCODONE/ACETAMINOPHEN (10/325) TAB PO (03:29)
[2019-04-25] MEDS: LORAZEPAM 2 MG INJ IV ×3 (05:08→18:04)
[2019-04-25] MEDS: LANSOPRAZOLE 30 MG CAP GTB ×2 (05:27→18:00)
[2019-04-25 06:33] LABS: ADD MAN DIFF? NO
[2019-04-25 06:37] LABS: WHITE BLOOD COUNT 15.6 10^3/ul (4.8-10.8)
[2019-04-25 06:37] LABS: BASOPHIL # 0.1 10^3/ul (0.0-0.1); BASOPHILS % 0.6 % (0.0-2.0); EOSINOPHILS # 0.7 10^3/ul (0.0-0.5); EOSINOPHILS % 4.7 % (0.0-7.0); HEMATOCRIT 30.1 % (37.0-47.0); HEMOGLOBIN 9.2 g/dl (12.0-16.0); LYMPHOCYTES % 19.2 % (15.0-51.0); MEAN CORPUSCULAR HEMOGLOBIN 27.7 pg (29.0-33.0); MEAN CORPUSCULAR HGB CONC 30.6 g/dl (32.0-37.0); MEAN CORPUSCULAR VOLUME 90.7 fl (82.0-101.0); MEAN PLATELET VOLUME 9.6 fl (7.4-10.4); MONOCYTE # 1.3 10^3/ul (0.3-0.9); MONOCYTES % 8.5 % (0.0-11.0); NEUTROPHIL # 10.3 10^3/ul (1.6-7.5); PLATELET COUNT 503 10^3/UL (140-415); RED BLOOD COUNT 3.32 10^6/ul (4.20-5.40)
[2019-04-25 07:35] LABS: ANION GAP 7 (5-13); BLOOD UREA NITROGEN 10 mg/dl (7-20); CALCIUM 9.5 mg/dl (8.4-10.2); CARBON DIOXIDE 33 mmol/L (21-31); CHLORIDE 98 mmol/L (97-110); CREATININE 0.48 mg/dl (0.44-1.00); Estimated GFR > 60 mL/min (>60); GLUCOSE 122 mg/dl (70-220); POTASSIUM 3.6 mmol/L (3.5-5.1); SODIUM 138 mmol/L (135-144)
[2019-04-25 07:43] LABS: PHOSPHORUS 4.4 mg/dl (2.5-4.9)
[2019-04-25 07:43] LABS: MAGNESIUM 1.9 mg/dl (1.7-2.5)
[2019-04-25] MEDS: IPRATROPIUM (HFA) 12.9 GM INHALER INH ×3 (07:56→23:15)
[2019-04-25] MEDS: CIPROFLOXACIN 400MG/D5W 200 ML IVPB ×2 (08:00→20:28)
[2019-04-25] MEDS: DOCUSATE SODIUM 10 MG/ML (10ML CUP) GTB (08:00)
[2019-04-25] MEDS: BALSAM PERU/CASTOR OIL 60 GM TUBE TOP (08:00)
[2019-04-25] MEDS: HYDROmorphONE 1 MG/ML SYG IV ×3 (08:01→19:31)
[2019-04-25] MEDS: ONDANSETRON 4 MG INJ IV ×2 (08:19→19:31)
[2019-04-25] MEDS: ENOXAPARIN 40 MG/0.4 ML SYG SC (08:35)
[2019-04-25] MEDS: ZOLPIDEM 5 MG TAB PO (21:37)
[2019-04-25] MEDS: LEVALBUTEROL (HFA) 15 GM INHALER INH (23:15)
[2019-04-26] MEDS: LORAZEPAM 2 MG INJ IV ×3 (00:09→20:01)
[2019-04-26] MEDS: LANSOPRAZOLE 30 MG CAP GTB (06:00)
[2019-04-26] MEDS: IPRATROPIUM (HFA) 12.9 GM INHALER INH ×3 (08:35→23:18)
[2019-04-26] MEDS: LEVALBUTEROL (HFA) 15 GM INHALER INH ×3 (08:35→19:58)
[2019-04-26] MEDS: DOCUSATE SODIUM 10 MG/ML (10ML CUP) GTB (09:13)
[2019-04-26] MEDS: BALSAM PERU/CASTOR OIL 60 GM TUBE TOP (09:13)
[2019-04-26] MEDS: CIPROFLOXACIN 400MG/D5W 200 ML IVPB ×2 (09:13→20:57)
[2019-04-26] MEDS: HYDROmorphONE 1 MG/ML SYG IV ×3 (09:14→16:55)
[2019-04-26] MEDS: ENOXAPARIN 40 MG/0.4 ML SYG SC (09:50)
[2019-04-26 10:59] LABS: ADD MAN DIFF? NO
[2019-04-26 11:01] LABS: WHITE BLOOD COUNT 14.3 10^3/ul (4.8-10.8)
[2019-04-26 11:01] LABS: BASOPHIL # 0.1 10^3/ul (0.0-0.1); BASOPHILS % 0.8 % (0.0-2.0); EOSINOPHILS # 0.6 10^3/ul (0.0-0.5); EOSINOPHILS % 3.9 % (0.0-7.0); HEMATOCRIT 29.6 % (37.0-47.0); HEMOGLOBIN 9.3 g/dl (12.0-16.0); LYMPHOCYTES # 2.9 10^3/ul (0.8-2.9); LYMPHOCYTES % 20.5 % (15.0-51.0); MEAN CORPUSCULAR HEMOGLOBIN 27.9 pg (29.0-33.0); MEAN CORPUSCULAR HGB CONC 31.4 g/dl (32.0-37.0); MEAN CORPUSCULAR VOLUME 88.9 fl (82.0-101.0); MEAN PLATELET VOLUME 9.7 fl (7.4-10.4); MONOCYTE # 0.8 10^3/ul (0.3-0.9); MONOCYTES % 5.8 % (0.0-11.0); NEUTROPHIL # 9.7 10^3/ul (1.6-7.5); NEUTROPHILS % 68.2 % (39.0-77.0); PLATELET COUNT 566 10^3/UL (140-415); RED BLOOD COUNT 3.33 10^6/ul (4.20-5.40); RED CELL DISTRIBUTION WIDTH 13.7 % (11.5-14.5)
[2019-04-26 11:27] LABS: ANION GAP 5 (5-13); BLOOD UREA NITROGEN 9 mg/dl (7-20); CALCIUM 9.8 mg/dl (8.4-10.2); CARBON DIOXIDE 34 mmol/L (21-31); CHLORIDE 97 mmol/L (97-110); CREATININE 0.51 mg/dl (0.44-1.00); Estimated GFR > 60 mL/min (>60); GLUCOSE 140 mg/dl (70-220); SODIUM 136 mmol/L (135-144)
[2019-04-26] MEDS: ONDANSETRON 4 MG INJ IV (13:20)
[2019-04-26] MEDS ORDERED: BISACODYL 10 MG SUPP PR (16:00)
[2019-04-26] MEDS: METOCLOPRAMIDE 10 MG INJ IV (16:55)
[2019-04-26] MEDS: D5W-0.45 NACL + KCL 20 MEQ 1,000 ML IV (18:29)
[2019-04-26] MEDS: ESTRADIOL 0.1 MG/24 HR PATCH TRANSDERM (20:55)
[2019-04-26] MEDS: FAMOTIDINE 20 MG INJ IV (20:56)
[2019-04-27] MEDS: METOCLOPRAMIDE 10 MG INJ IV ×4 (00:34→17:37)
[2019-04-27 07:25] LABS: ADD MAN DIFF? NO
[2019-04-27 07:34] LABS: BASOPHIL # 0.1 10^3/ul (0.0-0.1); BASOPHILS % 0.9 % (0.0-2.0); EOSINOPHILS # 0.7 10^3/ul (0.0-0.5); EOSINOPHILS % 4.8 % (0.0-7.0); HEMATOCRIT 30.3 % (37.0-47.0); HEMOGLOBIN 9.4 g/dl (12.0-16.0); LYMPHOCYTES # 3.9 10^3/ul (0.8-2.9); LYMPHOCYTES % 26.3 % (15.0-51.0); MEAN CORPUSCULAR HEMOGLOBIN 27.5 pg (29.0-33.0); MEAN CORPUSCULAR VOLUME 88.6 fl (82.0-101.0); MEAN PLATELET VOLUME 9.7 fl (7.4-10.4); MONOCYTE # 1.2 10^3/ul (0.3-0.9); MONOCYTES % 7.7 % (0.0-11.0); NEUTROPHIL # 8.9 10^3/ul (1.6-7.5); NEUTROPHILS % 59.2 % (39.0-77.0); PLATELET COUNT 611 10^3/UL (140-415); RED BLOOD COUNT 3.42 10^6/ul (4.20-5.40)
[2019-04-27 07:42] LABS: AADO2 Arterial 97.4 mmHg (7.0-24.0); Allen Test ACCEPTAB; Arterial Base Excess 4.3 mmol/L (-3.0-3); Arterial Blood Gas Oxygen Sat 93.6 mmHG (95.0-98.0); Arterial COHb 0.3 % (0.0-3.0); Arterial Fraction of Oxyhgb 92.9 % (93.0-99.0); Arterial HCO3 28.7 mmol/L (22.0-26.0); Arterial MetHb 0.4 % (0.0-1.5); Arterial pCO2 42.6 mmhg (35-45); MODE VENT - SIMV; Site Right Radial
[2019-04-27 07:52] LABS: INR 1.09; PROTIME 14.2 Sec (11.9-14.9); PT RATIO 1.1
[2019-04-27 08:01] LABS: PREALBUMIN 13.2 mg/dl (17.6-36.0)
[2019-04-27 08:03] LABS: ALANINE AMINOTRANSFERASE 22 IU/L (13-69); ALBUMIN 3.5 g/dl (3.3-4.9); ALBUMIN/GLOBULIN RATIO 0.83; ALKALINE PHOSPHATASE 87 IU/L (42-121); ANION GAP 9 (5-13); ASPARTATE AMINO TRANSFERASE 26 IU/L (15-46); BILIRUBIN,INDIRECT 0.4 mg/dl (0-1.1); BILIRUBIN,TOTAL 0.4 mg/dl (0.2-1.3); BLOOD UREA NITROGEN 8 mg/dl (7-20); CARBON DIOXIDE 30 mmol/L (21-31); CHLORIDE 99 mmol/L (97-110); CREATININE 0.53 mg/dl (0.44-1.00); Estimated GFR > 60 mL/min (>60); GLUCOSE 122 mg/dl (70-220); POTASSIUM 4.1 mmol/L (3.5-5.1); SODIUM 138 mmol/L (135-144); TOTAL PROTEIN 7.7 g/dl (6.1-8.1)
[2019-04-27] MEDS: IPRATROPIUM (HFA) 12.9 GM INHALER INH ×2 (08:48→16:08)
[2019-04-27] MEDS: LEVALBUTEROL (HFA) 15 GM INHALER INH (08:48)
[2019-04-27] MEDS: DOCUSATE SODIUM 10 MG/ML (10ML CUP) GTB (09:00)
[2019-04-27] MEDS: D5W-0.45 NACL + KCL 20 MEQ 1,000 ML IV ×2 (09:05→23:56)
[2019-04-27] MEDS: FAMOTIDINE 20 MG INJ IV ×2 (09:06→21:20)
[2019-04-27] MEDS: CIPROFLOXACIN 400MG/D5W 200 ML IVPB ×3 (09:08→21:20)
[2019-04-27] MEDS: ENOXAPARIN 40 MG/0.4 ML SYG SC (09:09)
[2019-04-27] MEDS: BALSAM PERU/CASTOR OIL 60 GM TUBE TOP (09:10)
[2019-04-27] MEDS: LORAZEPAM 2 MG INJ IV ×2 (11:04→17:36)
[2019-04-27 11:25] LABS: PROCALCITONIN 0.06 ng/mL (0.00-0.10)
[2019-04-27] MEDS: HYDROmorphONE 1 MG/ML SYG IV ×2 (13:20→16:38)
[2019-04-27] MEDS: ONDANSETRON 4 MG INJ IV ×2 (13:20→16:37)
[2019-04-27] MEDS ORDERED: TPN 1,000 ML IV (17:26)
[2019-04-28] MEDS: METOCLOPRAMIDE 10 MG INJ IV ×4 (00:09→18:04)
[2019-04-28] MEDS: IPRATROPIUM (HFA) 12.9 GM INHALER INH ×3 (01:04→16:52)
[2019-04-28] MEDS: LORAZEPAM 2 MG INJ IV ×3 (04:41→21:38)
[2019-04-28 06:34] LABS: ANION GAP 7 (5-13); BLOOD UREA NITROGEN 6 mg/dl (7-20); CALCIUM 9.5 mg/dl (8.4-10.2); CARBON DIOXIDE 30 mmol/L (21-31); CHLORIDE 102 mmol/L (97-110); Estimated GFR > 60 mL/min (>60); GLUCOSE 122 mg/dl (70-220); MAGNESIUM 1.7 mg/dl (1.7-2.5); PHOSPHORUS 5.3 mg/dl (2.5-4.9); POTASSIUM 3.8 mmol/L (3.5-5.1); SODIUM 139 mmol/L (135-144)
[2019-04-28] MEDS: LEVALBUTEROL (HFA) 15 GM INHALER INH ×2 (08:00→16:52)
[2019-04-28] MEDS ORDERED: FAT EMULSION 20% 250 ML IV (09:00)
[2019-04-28] MEDS: CIPROFLOXACIN 400MG/D5W 200 ML IVPB (09:00)
[2019-04-28] MEDS: FAMOTIDINE 20 MG INJ IV ×2 (09:25→21:38)
[2019-04-28] MEDS: HYDROmorphONE 1 MG/ML SYG IV (09:26)
[2019-04-28] MEDS: D5W-0.45 NACL + KCL 20 MEQ 1,000 ML IV (09:26)
[2019-04-28] MEDS: BALSAM PERU/CASTOR OIL 60 GM TUBE TOP (09:27)
[2019-04-28] MEDS: ENOXAPARIN 40 MG/0.4 ML SYG SC (09:29)
[2019-04-28] MEDS: ONDANSETRON 4 MG INJ IV (09:31)
[2019-04-28] MEDS: MAGNESIUM SULFATE 3 GM in DEXTROSE 5% 100 ML IVPB (12:02)
[2019-04-28] MEDS: MIDAZOLAM 1 MG/ML 2 ML INJ ×2 (13:22→14:41)
[2019-04-28] MEDS: FENTAnyl 50 MCG/ML VIAL (13:22)
[2019-04-28] MEDS: IOHEXOL 300MG/ML 30 ML BTL (13:23)
[2019-04-28] MEDS: LIDOCAINE 1% (MDV) 20 ML INJ (14:34)
[2019-04-28] MEDS ORDERED: FENTAnyl 50 MCG/ML VIAL (14:49)
[2019-04-29] MEDS: IPRATROPIUM (HFA) 12.9 GM INHALER INH ×4 (00:34→15:47)
[2019-04-29] MEDS: D5W-0.45 NACL + KCL 20 MEQ 1,000 ML IV ×2 (02:56→15:39)
[2019-04-29] MEDS: LEVALBUTEROL (HFA) 15 GM INHALER INH (04:11)
[2019-04-29] MEDS: OXYCODONE/ACETAMINOPHEN (10/325) TAB PO (04:59)
[2019-04-29] MEDS: METOCLOPRAMIDE 10 MG INJ IV ×4 (05:02→18:29)
[2019-04-29 07:06] LABS: ANION GAP 4 (5-13); BLOOD UREA NITROGEN 8 mg/dl (7-20); CALCIUM 9.1 mg/dl (8.4-10.2); CARBON DIOXIDE 32 mmol/L (21-31); CHLORIDE 99 mmol/L (97-110); CREATININE 0.48 mg/dl (0.44-1.00); Estimated GFR > 60 mL/min (>60); GLUCOSE 125 mg/dl (70-220); MAGNESIUM 2.2 mg/dl (1.7-2.5); PHOSPHORUS 4.8 mg/dl (2.5-4.9); POTASSIUM 4.1 mmol/L (3.5-5.1); SODIUM 135 mmol/L (135-144)
[2019-04-29] MEDS: BALSAM PERU/CASTOR OIL 60 GM TUBE TOP (09:00)
[2019-04-29] MEDS: LORAZEPAM 2 MG INJ IV ×2 (09:27→15:40)
[2019-04-29] MEDS: FAMOTIDINE 20 MG INJ IV ×2 (09:58→20:28)
[2019-04-29] MEDS: ENOXAPARIN 40 MG/0.4 ML SYG SC (10:11)
[2019-04-29] MEDS: ONDANSETRON 4 MG INJ IV ×2 (11:01→18:45)
[2019-04-29] MEDS: HYDROmorphONE 1 MG/ML SYG IV ×2 (11:08→18:46)
[2019-04-29] MEDS: IOHEXOL 300MG/ML 30 ML BTL (15:39)
[2019-04-30] MEDS: METOCLOPRAMIDE 10 MG INJ IV ×4 (00:18→17:54)
[2019-04-30] MEDS: LACTULOSE 30ML CUP GTB (00:18)
[2019-04-30] MEDS: IPRATROPIUM (HFA) 12.9 GM INHALER INH ×5 (00:23→23:26)
[2019-04-30] MEDS: ONDANSETRON 4 MG INJ IV ×4 (05:54→22:17)
[2019-04-30] MEDS: HYDROmorphONE 1 MG/ML SYG IV ×4 (05:54→22:17)
[2019-04-30 07:34] LABS: ADD MAN DIFF? NO
[2019-04-30 07:41] LABS: BASOPHIL # 0.1 10^3/ul (0.0-0.1); BASOPHILS % 0.9 % (0.0-2.0); EOSINOPHILS % 6.7 % (0.0-7.0); HEMOGLOBIN 10.3 g/dl (12.0-16.0); LYMPHOCYTES # 2.6 10^3/ul (0.8-2.9); LYMPHOCYTES % 18.3 % (15.0-51.0); MEAN CORPUSCULAR HEMOGLOBIN 27.2 pg (29.0-33.0); MEAN CORPUSCULAR HGB CONC 30.3 g/dl (32.0-37.0); MEAN CORPUSCULAR VOLUME 89.7 fl (82.0-101.0); MEAN PLATELET VOLUME 9.1 fl (7.4-10.4); MONOCYTES % 7.1 % (0.0-11.0); NEUTROPHIL # 9.4 10^3/ul (1.6-7.5); NEUTROPHILS % 66.2 % (39.0-77.0); PLATELET COUNT 608 10^3/UL (140-415); RED BLOOD COUNT 3.79 10^6/ul (4.20-5.40)
[2019-04-30 07:41] LABS: WHITE BLOOD COUNT 14.1 10^3/ul (4.8-10.8)
[2019-04-30 08:00] LABS: ALANINE AMINOTRANSFERASE 16 IU/L (13-69); ALBUMIN 3.6 g/dl (3.3-4.9); ALKALINE PHOSPHATASE 86 IU/L (42-121); ANION GAP 5 (5-13); ASPARTATE AMINO TRANSFERASE 22 IU/L (15-46); BILIRUBIN,INDIRECT 0.4 mg/dl (0-1.1); BILIRUBIN,TOTAL 0.4 mg/dl (0.2-1.3); BLOOD UREA NITROGEN 8 mg/dl (7-20); CARBON DIOXIDE 33 mmol/L (21-31); CHLORIDE 99 mmol/L (97-110); CREATININE 0.54 mg/dl (0.44-1.00); Estimated GFR > 60 mL/min (>60); GLUCOSE 151 mg/dl (70-220); POTASSIUM 4.1 mmol/L (3.5-5.1); SODIUM 137 mmol/L (135-144); TOTAL PROTEIN 7.6 g/dl (6.1-8.1)
[2019-04-30 08:01] LABS: PHOSPHORUS 4.9 mg/dl (2.5-4.9)
[2019-04-30 08:01] LABS: MAGNESIUM 1.9 mg/dl (1.7-2.5)
[2019-04-30 08:10] LABS: INR 1.03; PROTIME 13.6 Sec (11.9-14.9); PT RATIO 1.1
[2019-04-30] MEDS: LORAZEPAM 2 MG INJ IV ×3 (08:20→18:26)
[2019-04-30] MEDS: BALSAM PERU/CASTOR OIL 60 GM TUBE TOP (08:21)
[2019-04-30] MEDS: FAMOTIDINE 20 MG INJ IV (08:21)
[2019-04-30] MEDS: ENOXAPARIN 40 MG/0.4 ML SYG SC (08:35)
[2019-04-30] MEDS ORDERED: METOCLOPRAMIDE (1 MG/ML) 10 ML CUP GTB (12:30)
[2019-04-30] MEDS: FAMOTIDINE 20 MG TAB GTB (20:15)
[2019-04-30] MEDS: ESTRADIOL 0.1 MG/24 HR PATCH TRANSDERM (21:38)
[2019-05-01] MEDS: METOCLOPRAMIDE 10 MG INJ IV ×4 (00:40→18:36)
[2019-05-01] MEDS: LORAZEPAM 2 MG INJ IV ×3 (05:47→18:58)
[2019-05-01] MEDS: HYDROmorphONE 1 MG/ML SYG IV ×3 (07:01→16:17)
[2019-05-01] MEDS: FAMOTIDINE 20 MG TAB GTB (08:12)
[2019-05-01] MEDS: ONDANSETRON 4 MG INJ IV ×2 (08:12→16:17)
[2019-05-01] MEDS: IPRATROPIUM (HFA) 12.9 GM INHALER INH ×3 (08:23→16:15)
[2019-05-01] MEDS: ENOXAPARIN 40 MG/0.4 ML SYG SC (08:37)
[2019-05-01] MEDS: BALSAM PERU/CASTOR OIL 60 GM TUBE TOP (09:00)
[2019-05-01] MEDS: IBUPROFEN LIQUID (PED) 20 MG/ML CUP GTB (12:55)
== END 2019-05-01 19:20 | DRG 870 ==
LOC: TEL 04-11 23:08 → E/R 23:10 → TEL 04-08 18:05
PROC: 5A1955Z Respiratory Ventilation, Greater than 96 Consecutive Hours (ICD-10-PCS; principal; 2019-04-08)
PROC: 0D20XUZ Change Feeding Device in Upper Intestinal Tract, External Approach (ICD-10-PCS; 2019-04-28)
DX: A41.9 Sepsis, unspecified organism (principal); J96.21 Acute and chronic respiratory failure with hypoxia; J18.9 Pneumonia, unspecified organism; Z99.11 Dependence on respirator [ventilator] status; E46 Unspecified protein-calorie malnutrition; N30.00 Acute cystitis without hematuria; K94.23 Gastrostomy malfunction; E66.01 Morbid (severe) obesity due to excess calories; J44.9 Chronic obstructive pulmonary disease, unspecified; R13.10 Dysphagia, unspecified; D63.8 Anemia in other chronic diseases classified elsewhere; G71.09 Other specified muscular dystrophies; G60.0 Hereditary motor and sensory neuropathy; G89.29 Other chronic pain; K59.00 Constipation, unspecified; R53.81 Other malaise; Y95 Nosocomial condition; Z68.39 Body mass index [BMI] 39.0-39.9, adult; Z87.891 Personal history of nicotine dependence; Z98.84 Bariatric surgery status; Z93.0 Tracheostomy status; Z74.01 Bed confinement status; Z79.891 Long term (current) use of opiate analgesic
CPT/HCPCS: 36415; 36600; 49465; 71045; 73120; 74018; 74176; 80048; 80053; 80202; 81001; 82803; 83036; 83605; 83735; 83880; 84100; 84134; 84145; 84443; 84484; 85025; 85610; 85730; 87040-91; 87070; 87081; 87086; 92507; 92523; 92526; 92610; 93005; 93970; 94002; 94003; 94640; 96374; 97110; 97163; 97167; 97530; 97535; 99285-25

== ENCOUNTER 2019-05-02 10:53 | Inpatient (IN) | payer BC, MEDICAID ==
[2019-05-02 11:20] LABS: ADD MAN DIFF? NO
[2019-05-02 11:23] LABS: BASOPHIL # 0.1 10^3/ul (0.0-0.1); BASOPHILS % 0.8 % (0.0-2.0); EOSINOPHILS # 0.4 10^3/ul (0.0-0.5); EOSINOPHILS % 3.1 % (0.0-7.0); HEMATOCRIT 32.5 % (37.0-47.0); HEMOGLOBIN 9.9 g/dl (12.0-16.0); LYMPHOCYTES # 2.9 10^3/ul (0.8-2.9); LYMPHOCYTES % 21.9 % (15.0-51.0); MEAN CORPUSCULAR HEMOGLOBIN 27.3 pg (29.0-33.0); MEAN CORPUSCULAR HGB CONC 30.5 g/dl (32.0-37.0); MEAN CORPUSCULAR VOLUME 89.5 fl (82.0-101.0); MEAN PLATELET VOLUME 9.4 fl (7.4-10.4); MONOCYTE # 0.9 10^3/ul (0.3-0.9); MONOCYTES % 6.5 % (0.0-11.0); NEUTROPHIL # 8.9 10^3/ul (1.6-7.5); NEUTROPHILS % 66.9 % (39.0-77.0); PLATELET COUNT 558 10^3/UL (140-415); RED BLOOD COUNT 3.63 10^6/ul (4.20-5.40); RED CELL DISTRIBUTION WIDTH 13.8 % (11.5-14.5)
[2019-05-02 11:23] LABS: WHITE BLOOD COUNT 13.3 10^3/ul (4.8-10.8)
[2019-05-02] MEDS: LORAZEPAM 2 MG INJ IV (11:37)
[2019-05-02 11:39] LABS: ANION GAP 6 (5-13); BLOOD UREA NITROGEN 14 mg/dl (7-20); CALCIUM 9.9 mg/dl (8.4-10.2); CARBON DIOXIDE 34 mmol/L (21-31); CHLORIDE 97 mmol/L (97-110); CREATININE 0.56 mg/dl (0.44-1.00); Estimated GFR > 60 mL/min (>60); GLUCOSE 115 mg/dl (70-220); POTASSIUM 4.2 mmol/L (3.5-5.1); SODIUM 137 mmol/L (135-144)
[2019-05-02 11:51] LABS: TROPONIN-I < 0.012 ng/ml (0.000-0.120)
[2019-05-02] MEDS: PIPER-TAZO 3.375 GM IV (PMX) 100 ML IVPB (13:16)
[2019-05-02] MEDS: SOD CHLORIDE 0.9% 1,000 ML IV (13:16)
[2019-05-02] MEDS ORDERED: ACETAMINOPHEN 325 MG TAB PO (14:00)
[2019-05-02] MEDS: VANCOMYCIN 1 GM (PMX) 250 ML IVPB (14:24)
[2019-05-02] MEDS ORDERED: DOCUSATE SODIUM 100 MG CAP PO (14:30)
[2019-05-02] MEDS ORDERED: ACETAMINOPHEN 650 MG SUPP PR (14:30)
[2019-05-02] MEDS ORDERED: ZOLPIDEM 5 MG TAB PO (14:30)
[2019-05-02] MEDS ORDERED: NACL 0.9% 3 ML SYG IV (14:30)
[2019-05-02] MEDS ORDERED: morphine 2 MG INJ IV (14:30)
[2019-05-02] MEDS: ONDANSETRON 4 MG INJ IV (15:29)
[2019-05-02] MEDS: HYDROmorphONE 2 MG/ML SYG IV (15:30)
[2019-05-02 19:08] LABS: PROCALCITONIN 0.03 ng/mL (0.00-0.10)
[2019-05-02] MEDS: AMITRIPTYLINE 50 MG TAB PO (20:08)
[2019-05-02] MEDS: ASCORBIC ACID 500 MG TAB PO (20:08)
[2019-05-02] MEDS: FAMOTIDINE 20 MG TAB PO (20:08)
[2019-05-02] MEDS: HYDROCODONE/APAP (5/325) TAB PO (20:08)
[2019-05-02] MEDS: MOMETASONE 0.24 GM INHALER INH (21:00)
[2019-05-03] MEDS: HYDROmorphONE 2 MG/ML SYG IV ×3 (01:07→20:01)
[2019-05-03 07:05] LABS: HEMOGLOBIN A1C 5.1 % (0-5.9)
[2019-05-03 07:17] LABS: ALANINE AMINOTRANSFERASE 16 IU/L (13-69); ALBUMIN/GLOBULIN RATIO 0.93; ALKALINE PHOSPHATASE 82 IU/L (42-121); ANION GAP 4 (5-13); ASPARTATE AMINO TRANSFERASE 18 IU/L (15-46); BILIRUBIN,INDIRECT 0.2 mg/dl (0-1.1); BILIRUBIN,TOTAL 0.2 mg/dl (0.2-1.3); BLOOD UREA NITROGEN 16 mg/dl (7-20); CALCIUM 9.3 mg/dl (8.4-10.2); CARBON DIOXIDE 33 mmol/L (21-31); CHLORIDE 99 mmol/L (97-110); CREATININE 0.52 mg/dl (0.44-1.00); Estimated GFR > 60 mL/min (>60); GLUCOSE 111 mg/dl (70-220); MAGNESIUM 1.9 mg/dl (1.7-2.5); PHOSPHORUS 5.5 mg/dl (2.5-4.9); SODIUM 136 mmol/L (135-144); TOTAL PROTEIN 6.2 g/dl (6.1-8.1)
[2019-05-03 07:21] LABS: TROPONIN-I < 0.012 ng/ml (0.000-0.120)
[2019-05-03] MEDS ORDERED: BIOTIN 10 MG PO (09:00)
[2019-05-03] MEDS: FAMOTIDINE 20 MG TAB PO ×2 (09:02→20:53)
[2019-05-03] MEDS: ASCORBIC ACID 500 MG TAB PO ×2 (09:02→20:54)
[2019-05-03] MEDS: CHOLECALCIFEROL 1,000 UNIT TAB PO (09:02)
[2019-05-03] MEDS: ONDANSETRON 4 MG INJ IV ×2 (09:02→20:01)
[2019-05-03] MEDS: CALCIUM CARBONATE 500 MG CHEW TAB PO (09:02)
[2019-05-03] MEDS: MOMETASONE 0.24 GM INHALER INH ×2 (09:13→20:54)
[2019-05-03] MEDS: ENOXAPARIN 40 MG/0.4 ML SYG SC (09:20)
[2019-05-03] MEDS: LORAZEPAM 1 MG TAB PEG ×2 (11:44→17:46)
[2019-05-03] MEDS: CYANOCOBALAMIN 500 MCG TAB PO (13:21)
[2019-05-03] MEDS ORDERED: ALBUTEROL/IPRATROPIUM (NEB) 3 ML AMP HHN (16:00)
[2019-05-03] MEDS: ALBUTEROL/IPRATROPIUM (NEB) 3 ML AMP HHN ×2 (16:28→19:34)
[2019-05-03] MEDS: MECLIZINE 12.5 MG TAB PO (17:46)
[2019-05-03] MEDS: AMITRIPTYLINE 50 MG TAB PO (20:53)
[2019-05-04] MEDS: IPRATROPIUM (HFA) 12.9 GM INHALER INH ×4 (01:59→19:23)
[2019-05-04] MEDS: ALBUTEROL HFA 8 GM INHALER INH ×4 (01:59→19:23)
[2019-05-04] MEDS: CHOLECALCIFEROL 1,000 UNIT TAB PO (08:21)
[2019-05-04] MEDS: ASCORBIC ACID 500 MG TAB PO ×2 (08:21→20:56)
[2019-05-04] MEDS: CALCIUM CARBONATE 500 MG CHEW TAB PO (08:21)
[2019-05-04] MEDS: FAMOTIDINE 20 MG TAB PO ×2 (08:21→20:56)
[2019-05-04] MEDS: CYANOCOBALAMIN 500 MCG TAB PO (08:22)
[2019-05-04] MEDS: ENOXAPARIN 40 MG/0.4 ML SYG SC (08:30)
[2019-05-04] MEDS: HYDROmorphONE 2 MG/ML SYG IV ×3 (08:40→20:56)
[2019-05-04] MEDS: ONDANSETRON 4 MG INJ IV ×3 (08:40→20:55)
[2019-05-04] MEDS: MOMETASONE 0.24 GM INHALER INH ×2 (09:00→20:55)
[2019-05-04] MEDS: IBUPROFEN 400 MG TAB PO ×3 (10:52→22:30)
[2019-05-04] MEDS: ESTRADIOL 0.1 MG/24 HR PATCH TRANSDERM (10:57)
[2019-05-04] MEDS: LORAZEPAM 1 MG TAB PEG (11:26)
[2019-05-04] MEDS: HYDROCODONE/APAP (5/325) TAB PO (17:45)
[2019-05-04] MEDS: AMITRIPTYLINE 50 MG TAB PO (20:56)
[2019-05-05] MEDS: IPRATROPIUM (HFA) 12.9 GM INHALER INH ×4 (01:15→19:36)
[2019-05-05] MEDS: ALBUTEROL HFA 8 GM INHALER INH ×4 (01:15→19:36)
[2019-05-05] MEDS: IBUPROFEN 400 MG TAB PO ×4 (04:32→21:31)
[2019-05-05] MEDS: HYDROCODONE/APAP (5/325) TAB PO (09:02)
[2019-05-05] MEDS: FAMOTIDINE 20 MG TAB PO ×2 (09:02→21:31)
[2019-05-05] MEDS: ASCORBIC ACID 500 MG TAB PO ×2 (09:02→21:31)
[2019-05-05] MEDS: CALCIUM CARBONATE 500 MG CHEW TAB PO (09:02)
[2019-05-05] MEDS: CYANOCOBALAMIN 500 MCG TAB PO (09:02)
[2019-05-05] MEDS: CHOLECALCIFEROL 1,000 UNIT TAB PO (09:03)
[2019-05-05] MEDS: MOMETASONE 0.24 GM INHALER INH ×2 (09:05→21:00)
[2019-05-05] MEDS: ENOXAPARIN 40 MG/0.4 ML SYG SC (09:05)
[2019-05-05] MEDS: LORAZEPAM 1 MG TAB PEG ×2 (09:13→21:31)
[2019-05-05] MEDS: HYDROmorphONE 2 MG/ML SYG IV ×2 (13:10→19:54)
[2019-05-05] MEDS: ONDANSETRON 4 MG INJ IV ×2 (13:10→19:53)
[2019-05-05] MEDS: KETOROLAC 15 MG INJ IV (16:48)
[2019-05-05] MEDS: AMITRIPTYLINE 50 MG TAB PO (21:30)
[2019-05-05] MEDS: MAGNESIUM OXIDE 400 MG TAB GTB (21:31)
[2019-05-06] MEDS: ALBUTEROL HFA 8 GM INHALER INH ×4 (01:21→19:15)
[2019-05-06] MEDS: IPRATROPIUM (HFA) 12.9 GM INHALER INH ×4 (01:21→19:16)
[2019-05-06] MEDS: IBUPROFEN 400 MG TAB PO ×2 (04:28→10:46)
[2019-05-06] MEDS: KETOROLAC 15 MG INJ IV ×2 (04:31→21:48)
[2019-05-06] MEDS: MOMETASONE 0.24 GM INHALER INH ×2 (09:00→21:00)
[2019-05-06] MEDS: MAGNESIUM OXIDE 400 MG TAB GTB ×2 (10:34→21:49)
[2019-05-06] MEDS: CALCIUM CARBONATE 500 MG CHEW TAB PO (10:34)
[2019-05-06] MEDS: ASCORBIC ACID 500 MG TAB PO ×2 (10:34→21:00)
[2019-05-06] MEDS: CHOLECALCIFEROL 1,000 UNIT TAB PO (10:35)
[2019-05-06] MEDS: FAMOTIDINE 20 MG TAB PO ×2 (10:35→21:49)
[2019-05-06] MEDS: ENOXAPARIN 40 MG/0.4 ML SYG SC (10:58)
[2019-05-06] MEDS: LORAZEPAM 1 MG TAB PEG ×2 (11:31→21:49)
[2019-05-06] MEDS: ONDANSETRON 4 MG INJ IV ×2 (12:20→18:18)
[2019-05-06] MEDS: HYDROmorphONE 2 MG/ML SYG IV ×2 (12:20→18:12)
[2019-05-06] MEDS: METOCLOPRAMIDE 5 MG TAB PO ×2 (18:13→21:49)
[2019-05-06] MEDS: BARIUM SULFATE 135 ML (E-Z HD) PO (20:21)
[2019-05-06] MEDS: AMITRIPTYLINE 50 MG TAB PO (21:00)
[2019-05-06] MEDS: LACTOBACILLUS RHAMNOSUS CAP PO (21:49)
[2019-05-07] MEDS: IPRATROPIUM (HFA) 12.9 GM INHALER INH ×4 (01:43→19:58)
[2019-05-07] MEDS: ALBUTEROL HFA 8 GM INHALER INH ×4 (01:43→19:58)
[2019-05-07] MEDS: ONDANSETRON 4 MG INJ IV ×2 (06:17→17:57)
[2019-05-07] MEDS: HYDROmorphONE 2 MG/ML SYG IV ×3 (06:18→21:00)
[2019-05-07] MEDS: MAGNESIUM OXIDE 400 MG TAB GTB ×2 (08:04→20:59)
[2019-05-07] MEDS: CHOLECALCIFEROL 1,000 UNIT TAB PO (08:04)
[2019-05-07] MEDS: FAMOTIDINE 20 MG TAB PO ×2 (08:05→20:59)
[2019-05-07] MEDS: METOCLOPRAMIDE 5 MG TAB PO ×3 (08:05→20:59)
[2019-05-07] MEDS: ASCORBIC ACID 500 MG TAB PO ×2 (08:05→20:59)
[2019-05-07] MEDS: CALCIUM CARBONATE 500 MG CHEW TAB PO (08:05)
[2019-05-07] MEDS: LACTOBACILLUS RHAMNOSUS CAP PO ×2 (08:05→20:58)
[2019-05-07] MEDS: KETOROLAC 15 MG INJ IV (08:05)
[2019-05-07] MEDS: MOMETASONE 0.24 GM INHALER INH ×2 (08:06→21:00)
[2019-05-07 08:10] LABS: ADD MAN DIFF? NO
[2019-05-07 08:18] LABS: WHITE BLOOD COUNT 12.2 10^3/ul (4.8-10.8)
[2019-05-07 08:18] LABS: BASOPHIL # 0.1 10^3/ul (0.0-0.1); BASOPHILS % 0.7 % (0.0-2.0); EOSINOPHILS # 0.9 10^3/ul (0.0-0.5); EOSINOPHILS % 7.2 % (0.0-7.0); HEMATOCRIT 30.7 % (37.0-47.0); HEMOGLOBIN 9.5 g/dl (12.0-16.0); LYMPHOCYTES # 3.5 10^3/ul (0.8-2.9); LYMPHOCYTES % 28.7 % (15.0-51.0); MEAN CORPUSCULAR HEMOGLOBIN 27.8 pg (29.0-33.0); MEAN CORPUSCULAR HGB CONC 30.9 g/dl (32.0-37.0); MEAN CORPUSCULAR VOLUME 89.8 fl (82.0-101.0); MEAN PLATELET VOLUME 9.8 fl (7.4-10.4); MONOCYTE # 0.9 10^3/ul (0.3-0.9); MONOCYTES % 7.2 % (0.0-11.0); NEUTROPHIL # 6.7 10^3/ul (1.6-7.5); NEUTROPHILS % 55.3 % (39.0-77.0); PLATELET COUNT 466 10^3/UL (140-415); RED BLOOD COUNT 3.42 10^6/ul (4.20-5.40); RED CELL DISTRIBUTION WIDTH 13.9 % (11.5-14.5)
[2019-05-07] MEDS: ENOXAPARIN 40 MG/0.4 ML SYG SC (08:33)
[2019-05-07 08:49] LABS: ANION GAP 5 (5-13); BLOOD UREA NITROGEN 20 mg/dl (7-20); CALCIUM 9.8 mg/dl (8.4-10.2); CARBON DIOXIDE 35 mmol/L (21-31); CHLORIDE 94 mmol/L (97-110); CREATININE 0.59 mg/dl (0.44-1.00); Estimated GFR > 60 mL/min (>60); GLUCOSE 125 mg/dl (70-220); MAGNESIUM 1.9 mg/dl (1.7-2.5); PHOSPHORUS 5.2 mg/dl (2.5-4.9); POTASSIUM 4.4 mmol/L (3.5-5.1); SODIUM 134 mmol/L (135-144)
[2019-05-07] MEDS: LORAZEPAM 1 MG TAB PEG (09:41)
[2019-05-07] MEDS: DOCUSATE SODIUM 10 MG/ML (10ML CUP) GTB (20:58)
[2019-05-07] MEDS: AMITRIPTYLINE 50 MG TAB PO (20:59)
[2019-05-07] MEDS: SENNA TAB PO (20:59)
[2019-05-08] MEDS: IPRATROPIUM (HFA) 12.9 GM INHALER INH ×3 (01:59→19:46)
[2019-05-08] MEDS: ALBUTEROL HFA 8 GM INHALER INH ×3 (01:59→19:46)
[2019-05-08] MEDS: ONDANSETRON 4 MG INJ IV ×3 (06:59→19:52)
[2019-05-08] MEDS: HYDROmorphONE 2 MG/ML SYG IV ×3 (06:59→19:52)
[2019-05-08] MEDS: CALCIUM CARBONATE 500 MG CHEW TAB PO (08:55)
[2019-05-08] MEDS: DOCUSATE SODIUM 10 MG/ML (10ML CUP) GTB ×2 (08:55→19:58)
[2019-05-08] MEDS: LACTOBACILLUS RHAMNOSUS CAP PO ×2 (08:56→20:05)
[2019-05-08] MEDS: METOCLOPRAMIDE 5 MG TAB PO ×2 (08:56→11:19)
[2019-05-08] MEDS: ASCORBIC ACID 500 MG TAB PO ×2 (08:56→19:59)
[2019-05-08] MEDS: MAGNESIUM OXIDE 400 MG TAB GTB ×2 (08:56→19:59)
[2019-05-08] MEDS: CHOLECALCIFEROL 1,000 UNIT TAB PO (08:56)
[2019-05-08] MEDS: SENNA TAB PO ×2 (08:56→19:59)
[2019-05-08] MEDS: IBUPROFEN 400 MG TAB PO (08:58)
[2019-05-08] MEDS: FAMOTIDINE 20 MG TAB PO ×2 (08:58→19:59)
[2019-05-08] MEDS: MOMETASONE 0.24 GM INHALER INH ×3 (08:59→20:48)
[2019-05-08] MEDS: ENOXAPARIN 40 MG/0.4 ML SYG SC (09:06)
[2019-05-08] MEDS: ACETAMINOPHEN 325 MG TAB PO (11:24)
[2019-05-08] MEDS: LORAZEPAM 1 MG TAB PEG (15:52)
[2019-05-08] MEDS: AMITRIPTYLINE 50 MG TAB PO (20:00)
[2019-05-09] MEDS: ALBUTEROL HFA 8 GM INHALER INH ×3 (01:03→14:00)
[2019-05-09] MEDS: IPRATROPIUM (HFA) 12.9 GM INHALER INH ×3 (01:03→14:00)
[2019-05-09] MEDS: ONDANSETRON 4 MG INJ IV ×2 (05:06→16:57)
[2019-05-09] MEDS: HYDROmorphONE 2 MG/ML SYG IV ×2 (05:07→16:56)
[2019-05-09] MEDS: MOMETASONE 0.24 GM INHALER INH ×2 (08:57→20:31)
[2019-05-09] MEDS: FAMOTIDINE 20 MG TAB PO ×2 (09:03→20:30)
[2019-05-09] MEDS: DOCUSATE SODIUM 10 MG/ML (10ML CUP) GTB ×2 (09:03→20:30)
[2019-05-09] MEDS: CHOLECALCIFEROL 1,000 UNIT TAB PO (09:03)
[2019-05-09] MEDS: LACTOBACILLUS RHAMNOSUS CAP PO ×2 (09:04→20:30)
[2019-05-09] MEDS: SENNA TAB PO (09:04)
[2019-05-09] MEDS: MAGNESIUM OXIDE 400 MG TAB GTB ×2 (09:04→20:30)
[2019-05-09] MEDS: CALCIUM CARBONATE 500 MG CHEW TAB PO (09:04)
[2019-05-09] MEDS: ASCORBIC ACID 500 MG TAB PO ×2 (09:04→20:30)
[2019-05-09] MEDS: ENOXAPARIN 40 MG/0.4 ML SYG SC (09:05)
[2019-05-09] MEDS: ACETAMINOPHEN 325 MG TAB PO (09:07)
[2019-05-09] MEDS: LORAZEPAM 1 MG TAB PEG (14:18)
[2019-05-09] MEDS ORDERED: ASA/ACETAMINOPHEN/CAFF TAB GTB (16:00)
[2019-05-09] MEDS: ALBUTEROL/IPRATROPIUM (NEB) 3 ML AMP HHN (20:17)
[2019-05-09] MEDS: BISACODYL (EC) 5 MG TAB PO (20:30)
[2019-05-09] MEDS: ACET/BUTAL/CAFF TAB GTB (20:30)
[2019-05-09] MEDS: AMITRIPTYLINE 50 MG TAB PO (20:31)
[2019-05-09] MEDS: DICLOFENAC SODIUM 1% GEL 100 GM TUBE TP (20:31)
[2019-05-10] MEDS: ALBUTEROL/IPRATROPIUM (NEB) 3 ML AMP HHN ×4 (01:14→20:09)
[2019-05-10] MEDS: HYDROmorphONE 2 MG/ML SYG IV ×3 (02:07→20:35)
[2019-05-10] MEDS: ONDANSETRON 4 MG INJ IV ×3 (02:07→20:35)
[2019-05-10 07:41] LABS: ADD MAN DIFF? NO
[2019-05-10 07:49] LABS: WHITE BLOOD COUNT 13.4 10^3/ul (4.8-10.8)
[2019-05-10 07:49] LABS: BASOPHIL # 0.1 10^3/ul (0.0-0.1); BASOPHILS % 0.7 % (0.0-2.0); EOSINOPHILS # 0.7 10^3/ul (0.0-0.5); EOSINOPHILS % 5.5 % (0.0-7.0); HEMATOCRIT 33.9 % (37.0-47.0); HEMOGLOBIN 10.1 g/dl (12.0-16.0); LYMPHOCYTES # 3.5 10^3/ul (0.8-2.9); LYMPHOCYTES % 26.4 % (15.0-51.0); MEAN CORPUSCULAR HEMOGLOBIN 26.8 pg (29.0-33.0); MEAN CORPUSCULAR HGB CONC 29.8 g/dl (32.0-37.0); MEAN CORPUSCULAR VOLUME 89.9 fl (82.0-101.0); MEAN PLATELET VOLUME 9.7 fl (7.4-10.4); MONOCYTE # 1.1 10^3/ul (0.3-0.9); MONOCYTES % 7.9 % (0.0-11.0); NEUTROPHIL # 7.8 10^3/ul (1.6-7.5); NEUTROPHILS % 58.7 % (39.0-77.0); PLATELET COUNT 465 10^3/UL (140-415); RED BLOOD COUNT 3.77 10^6/ul (4.20-5.40)
[2019-05-10 08:31] LABS: ANION GAP 7 (5-13); BLOOD UREA NITROGEN 16 mg/dl (7-20); CALCIUM 9.8 mg/dl (8.4-10.2); CARBON DIOXIDE 36 mmol/L (21-31); CHLORIDE 93 mmol/L (97-110); CREATININE 0.57 mg/dl (0.44-1.00); Estimated GFR > 60 mL/min (>60); GLUCOSE 98 mg/dl (70-220); MAGNESIUM 1.8 mg/dl (1.7-2.5); POTASSIUM 4.3 mmol/L (3.5-5.1); SODIUM 136 mmol/L (135-144)
[2019-05-10] MEDS: FAMOTIDINE 20 MG TAB PO ×2 (08:32→21:19)
[2019-05-10] MEDS: ASCORBIC ACID 500 MG TAB PO ×2 (08:32→21:18)
[2019-05-10] MEDS: DICLOFENAC SODIUM 1% GEL 100 GM TUBE TP ×3 (08:32→21:19)
[2019-05-10] MEDS: CHOLECALCIFEROL 1,000 UNIT TAB PO (08:32)
[2019-05-10] MEDS: CALCIUM CARBONATE 500 MG CHEW TAB PO (08:32)
[2019-05-10] MEDS: LACTOBACILLUS RHAMNOSUS CAP PO ×2 (08:32→21:18)
[2019-05-10] MEDS: DOCUSATE SODIUM 10 MG/ML (10ML CUP) GTB ×2 (08:33→21:18)
[2019-05-10] MEDS: ACET/BUTAL/CAFF TAB GTB (08:33)
[2019-05-10] MEDS: MAGNESIUM OXIDE 400 MG TAB GTB ×2 (08:33→21:19)
[2019-05-10] MEDS: MOMETASONE 0.24 GM INHALER INH ×2 (08:47→21:18)
[2019-05-10] MEDS: ENOXAPARIN 40 MG/0.4 ML SYG SC (08:48)
[2019-05-10] MEDS: HYDROCODONE/APAP (5/325) TAB PO (09:59)
[2019-05-10] MEDS: LORAZEPAM 1 MG TAB PEG (16:07)
[2019-05-10] MEDS: MAGNESIUM HYDROXIDE 30ML CUP PO (21:18)
[2019-05-10] MEDS: AMITRIPTYLINE 50 MG TAB PO (21:18)
[2019-05-11] MEDS: ALBUTEROL/IPRATROPIUM (NEB) 3 ML AMP HHN ×4 (01:30→19:28)
[2019-05-11] MEDS: MOMETASONE 0.24 GM INHALER INH ×3 (09:00→21:35)
[2019-05-11] MEDS: HYDROmorphONE 1 MG/ML SYG IV (09:03)
[2019-05-11] MEDS: CALCIUM CARBONATE 500 MG CHEW TAB PO (09:04)
[2019-05-11] MEDS: MAGNESIUM OXIDE 400 MG TAB GTB ×2 (09:04→21:57)
[2019-05-11] MEDS: ASCORBIC ACID 500 MG TAB PO ×2 (09:04→21:34)
[2019-05-11] MEDS: FAMOTIDINE 20 MG TAB PO ×2 (09:04→21:34)
[2019-05-11] MEDS: LACTOBACILLUS RHAMNOSUS CAP PO ×2 (09:04→21:34)
[2019-05-11] MEDS: DOCUSATE SODIUM 10 MG/ML (10ML CUP) GTB ×2 (09:04→21:34)
[2019-05-11] MEDS: MAGNESIUM HYDROXIDE 30ML CUP PO ×2 (09:04→21:34)
[2019-05-11] MEDS: CHOLECALCIFEROL 1,000 UNIT TAB PO (09:04)
[2019-05-11] MEDS: ONDANSETRON 4 MG INJ IV (09:04)
[2019-05-11] MEDS: DICLOFENAC SODIUM 1% GEL 100 GM TUBE TP ×3 (09:05→21:35)
[2019-05-11] MEDS: ENOXAPARIN 40 MG/0.4 ML SYG SC (09:15)
[2019-05-11] MEDS: HYDROCODONE/APAP (10/325) TAB PO ×4 (10:24→21:34)
[2019-05-11] MEDS: ESTRADIOL 0.1 MG/24 HR PATCH TRANSDERM (11:46)
[2019-05-11] MEDS: LORAZEPAM 1 MG TAB PEG (16:26)
[2019-05-11] MEDS: AMITRIPTYLINE 50 MG TAB PO (21:34)
[2019-05-12] MEDS: ALBUTEROL/IPRATROPIUM (NEB) 3 ML AMP HHN ×4 (01:47→20:00)
[2019-05-12] MEDS: ONDANSETRON 4 MG INJ IV ×3 (06:41→17:19)
[2019-05-12] MEDS: HYDROCODONE/APAP (10/325) TAB PO (06:41)
[2019-05-12 07:16] LABS: ADD MAN DIFF? NO
[2019-05-12 07:22] LABS: WHITE BLOOD COUNT 13.6 10^3/ul (4.8-10.8)
[2019-05-12 07:22] LABS: BASOPHIL # 0.1 10^3/ul (0.0-0.1); BASOPHILS % 0.7 % (0.0-2.0); EOSINOPHILS # 0.9 10^3/ul (0.0-0.5); EOSINOPHILS % 6.9 % (0.0-7.0); HEMATOCRIT 33.1 % (37.0-47.0); HEMOGLOBIN 10.1 g/dl (12.0-16.0); LYMPHOCYTES # 3.1 10^3/ul (0.8-2.9); LYMPHOCYTES % 22.6 % (15.0-51.0); MEAN CORPUSCULAR HEMOGLOBIN 27.2 pg (29.0-33.0); MEAN CORPUSCULAR HGB CONC 30.5 g/dl (32.0-37.0); MEAN CORPUSCULAR VOLUME 89.2 fl (82.0-101.0); MEAN PLATELET VOLUME 9.6 fl (7.4-10.4); MONOCYTE # 1.1 10^3/ul (0.3-0.9); NEUTROPHIL # 8.3 10^3/ul (1.6-7.5); NEUTROPHILS % 61.1 % (39.0-77.0); PLATELET COUNT 424 10^3/UL (140-415); RED BLOOD COUNT 3.71 10^6/ul (4.20-5.40); RED CELL DISTRIBUTION WIDTH 14.2 % (11.5-14.5)
[2019-05-12 07:45] LABS: ALANINE AMINOTRANSFERASE 19 IU/L (13-69); ALBUMIN 3.6 g/dl (3.3-4.9); ALBUMIN/GLOBULIN RATIO 1.02; ALKALINE PHOSPHATASE 102 IU/L (42-121); ANION GAP 7 (5-13); ASPARTATE AMINO TRANSFERASE 20 IU/L (15-46); BILIRUBIN,INDIRECT 0.2 mg/dl (0-1.1); BILIRUBIN,TOTAL 0.2 mg/dl (0.2-1.3); BLOOD UREA NITROGEN 19 mg/dl (7-20); CALCIUM 9.7 mg/dl (8.4-10.2); CARBON DIOXIDE 34 mmol/L (21-31); CHLORIDE 93 mmol/L (97-110); CREATININE 0.57 mg/dl (0.44-1.00); Estimated GFR > 60 mL/min (>60); GLUCOSE 127 mg/dl (70-220); POTASSIUM 4.2 mmol/L (3.5-5.1); SODIUM 134 mmol/L (135-144); TOTAL PROTEIN 7.1 g/dl (6.1-8.1)
[2019-05-12 07:57] LABS: INR 0.94; PROTIME 12.7 Sec (11.9-14.9)
[2019-05-12] MEDS: DICLOFENAC SODIUM 1% GEL 100 GM TUBE TP ×2 (08:39→13:00)
[2019-05-12] MEDS: MAGNESIUM OXIDE 400 MG TAB GTB (08:40)
[2019-05-12] MEDS: ASCORBIC ACID 500 MG TAB PO (08:40)
[2019-05-12] MEDS: CALCIUM CARBONATE 500 MG CHEW TAB PO (08:40)
[2019-05-12] MEDS: MOMETASONE 0.24 GM INHALER INH (08:40)
[2019-05-12] MEDS: LACTOBACILLUS RHAMNOSUS CAP PO (08:40)
[2019-05-12] MEDS: CHOLECALCIFEROL 1,000 UNIT TAB PO (08:40)
[2019-05-12] MEDS: FAMOTIDINE 20 MG TAB PO (08:40)
[2019-05-12] MEDS: DOCUSATE SODIUM 10 MG/ML (10ML CUP) GTB (08:40)
[2019-05-12] MEDS: ENOXAPARIN 40 MG/0.4 ML SYG SC (09:23)
[2019-05-12] MEDS: HYDROmorphONE 1 MG/ML SYG IV ×3 (11:18→20:54)
== END 2019-05-12 20:56 | DRG 951 ==
LOC: E/R 10:53 → TEL 13:56
PROC: 5A1955Z Respiratory Ventilation, Greater than 96 Consecutive Hours (ICD-10-PCS; principal; 2019-05-02)
DX: Z87.891 Personal history of nicotine dependence (principal); J96.22 Acute and chronic respiratory failure with hypercapnia; J96.21 Acute and chronic respiratory failure with hypoxia; Z99.11 Dependence on respirator [ventilator] status; E46 Unspecified protein-calorie malnutrition; R65.10 Systemic inflammatory response syndrome (SIRS) of non-infectious origin without acute organ dysfunction; G71.00 Muscular dystrophy, unspecified; Z93.0 Tracheostomy status; Z98.84 Bariatric surgery status; Z93.1 Gastrostomy status; R13.10 Dysphagia, unspecified; M12.841 Other specific arthropathies, not elsewhere classified, right hand; J47.9 Bronchiectasis, uncomplicated; K31.84 Gastroparesis; K59.00 Constipation, unspecified; M79.7 Fibromyalgia; J44.9 Chronic obstructive pulmonary disease, unspecified; Z87.01 Personal history of pneumonia (recurrent)
CPT/HCPCS: 36415; 71045; 72040; 73130-RT; 74018; 74230; 80048; 80053; 83036; 83735; 84100; 84145; 84484; 85025; 85610; 87081; 92507; 92523; 92526; 92611; 93005; 94002; 94003; 94640; 94664; 96374; 96375; 97110; 97162; 97165; 97530; 99285-25